=== PATIENT | female | born 1980 | race Caucasian/White ===

== ENCOUNTER → 2017-10-31 12:17 | Outpatient (CLI) | payer MEDICAID, SELFPAY ==
[2017-10-31 13:26] LABS: ALT 28 U/L (12-78); AST 18 U/L (15-37)
== END ==
PROVIDERS: PCP Nurse Practitioner Family; Visit Provider Dermatology
DX: B35.1 Tinea unguium (principal); Z79.899 Other long term (current) drug therapy
CPT/HCPCS: 36415; 84450; 84460

== ENCOUNTER 2018-04-25 06:27 | Emergency (ER) | payer MEDICAID, SELFPAY ==
[2018-04-25 06:31] VITALS: BP 112/64; PULSE 124; RESP 22; TEMP 36.9; O2SAT 96
--- NOTE | 2018-04-25 06:45 | DI.RAD_ITS ---
SYMPTOMS/DIAGNOSIS: COUGH PA AND LATERAL CHEST: No priors. The heart size and pulmonary vasculature are within normal limits. There is a question of a right basilar infiltrate laterally. The lungs are otherwise clear. No effusions or pneumothoraces are identified. The bones are intact. IMPRESSION: Right basilar infiltrate which may represent pneumonia or atelectasis.
--- NOTE | 2018-04-25 06:47 | W.ED.GENAD ---
Discharge Plan Disposition Patient Disposition: HOME Condition: Stable Discharge Details Chief Complaint: RespSymp Clinical Impression: CAP (community acquired pneumonia) Primary Care Provider: Ene Cuevas ED Provider: Raad Cuevas Home Meds and New Rx's Prescriptions: New levofloxacin 750 mg tablet 750 mg PO DAILY Qty: 5 RF: 0 ondansetron 4 mg tablet,disintegrating 4 mg PO TID PRN (Reason: nausea and vomiting) 5 Days Qty: 30 RF: 0 No Action metformin 850 MG tablet 850 mg PO BID Qty: 180 RF: 3 acyclovir 400 MG tablet 400 mg PO BID Qty: 60 RF: 11 sertraline 100 mg Tablet 200 mg PO DAILY RF: 0 Discharge Instructions Instructions: Community Acquired Pneumonia (ED) Additional Instructions: if not better next week see your primary care provider return to the emergency department if you have severe worsening symptoms Medical Decision Making 38 yo female with hx of pcos who comes in with cc of cough and general malaise for a few days. Denies recent travel, ivdu, rashes. Has has body aches, subjective fevers and nausea as well. She is in no acute distress on exam, has clear lung sounds, no adominal tenderness or distention. I suspect her symptoms are due to influenza, given she is outside the treatment window do not feel tamiflu indicated. Will obtain xray to eval for pna though unlikely given lack of fever and she appears well. pt remains stable, xray does show pna. She is hd stable and appropriate for outpatient management, will start abx and advised f/u with pcp and return precautions given Differential Diagnosis influenza, pna, uri Imaging Data Radiologic Study: Attestation: I personally reviewed and interpreted this imaging study as follows: Imaging: X-Ray Radiologist's impression: IMPRESSION: Right basilar pneumonia. HPI General Mode of arrival: ambulatory. Date/Time Provider Initiated Documentation: 04/25/18 06:40. Limitations to Documentation: no limitations. Information obtained by: patient. History of Present Illness 38 year old F presents to the emergency department with the chief complaint of cough, described as moderate, with intensity rated at 6. and is localized to the chest. Patient reports no radiation. Patient started experiencing this day(s) (2) and it has been constant. No relieving factors improve symptom(s), No exacerbating factors reported . Patient notes no other symptoms.. Patient did receive the following treatments prior to arrival, NSAID Related Data Home Medications Medication Instructions Recorded Confirmed metformin 850 mg PO BID #180 tab-cap 05/09/17 04/25/18 acyclovir 400 mg PO BID #60 tab-cap 07/08/17 04/25/18 levofloxacin 750 mg PO DAILY #5 tab 04/25/18 ondansetron 4 mg PO TID PRN 5 Days #30 tab 04/25/18 sertraline 200 mg PO DAILY 04/25/18 04/25/18 Previous Rx's Medication Instructions Recorded metformin 850 mg PO BID #180 tab-cap 05/09/17 acyclovir 400 mg PO BID #60 tab-cap 07/08/17 levofloxacin 750 mg PO DAILY #5 tab 04/25/18 ondansetron 4 mg PO TID PRN 5 Days #30 tab 04/25/18 Allergies Allergy/AdvReac Type Severity Reaction Status Date / Time No Known Allergies Allergy Unverified 04/25/18 06:34 General Stated Complaint: RespSymp FALGUNI: 3 Review of Systems Review of Systems All systems reviewed & are unremarkable except as noted in HPI and below Eyes Denies loss of vision ENT Denies change in voice Cardiovascular Denies chest pain and Denies dyspnea Respiratory Denies dyspnea Gastrointestinal Denies abdominal pain, Denies nausea and Denies vomiting Genitourinary Denies dysuria Musculoskeletal Denies joint swelling Integumentary/Breasts Denies rash Neurologic Denies loss of vision Psychiatric Denies depression [facility] Social History Smoking/Tobacco Use Status: Never Exam Const General: no acute distress Orientation: alert [facility] Head: normal to inspection Ears: external ears normal General nose exam: external nose normal Mouth: moist mucous membranes Eyes General: appearance normal, both eyes and all related structures Neck Neck: normal visual inspection Resp Effort & Inspection: normal respiratory effort and able to speak in complete sentences Cardio Rate: regular rate Skin General skin exam: no rashes or lesions noted Neuro General: alert and oriented x3 Extrem General: normal to inspection Psych Mental Status: mental status grossly normal Course Vital Signs Temperature 36.9 C 04/25/18 06:31 Pulse 124 H 04/25/18 06:31 Respiratory Rate 22 04/25/18 06:31 Blood Pressure 112/64 04/25/18 06:31 Pulse Oximetry 96 04/25/18 06:31 Temperature 36.9 C 04/25/18 06:31 Temperature Source Temporal Artery Scan 04/25/18 06:31 Pulse 124 H 04/25/18 06:31 Respiratory Rate 22 04/25/18 06:31 Respiratory Effort Non-Labored 04/25/18 06:37 Respiratory Depth Normal 04/25/18 06:37 Blood Pressure 112/64 04/25/18 06:31 Blood Pressure Position Sitting 04/25/18 06:31 Pulse Oximetry 96 04/25/18 06:31 Oxygen Delivery Method Room Air 04/25/18 06:31 Oxygen Flow Rate 0 04/25/18 06:31 Pain Level 4 04/25/18 06:31
[2018-04-25] MEDS: Ondansetron O.D.T. 4 MG TABEF PO (06:52)
[2018-04-25] MEDS: Acetaminophen 500 MG TAB 1000 MG PO (06:53)
--- NOTE | 2018-04-25 06:53 | ED.GENADUL_ITS ---
Discharge Plan Disposition Patient Disposition: HOME Condition: Stable Discharge Details Chief Complaint: RespSymp Clinical Impression: CAP (community acquired pneumonia) Primary Care Provider: Ene Cuevas ED Provider: Raad Cuevas Home Meds and New Rx's Prescriptions: New levofloxacin 750 mg tablet 750 mg PO DAILY Qty: 5 RF: 0 ondansetron 4 mg tablet,disintegrating 4 mg PO TID PRN (Reason: nausea and vomiting) 5 Days Qty: 30 RF: 0 No Action metformin 850 MG tablet 850 mg PO BID Qty: 180 RF: 3 acyclovir 400 MG tablet 400 mg PO BID Qty: 60 RF: 11 sertraline 100 mg Tablet 200 mg PO DAILY RF: 0 Discharge Instructions Instructions: Community Acquired Pneumonia (ED) Additional Instructions: if not better next week see your primary care provider return to the emergency department if you have severe worsening symptoms Medical Decision Making 38 yo female with hx of pcos who comes in with cc of cough and general malaise for a few days. Denies recent travel, ivdu, rashes. Has has body aches, subjective fevers and nausea as well. She is in no acute distress on exam, has clear lung sounds, no adominal tenderness or distention. I suspect her symptoms are due to influenza, given she is outside the treatment window do not feel tamiflu indicated. Will obtain xray to eval for pna though unlikely given lack of fever and she appears well. pt remains stable, xray does show pna. She is hd stable and appropriate for outpatient management, will start abx and advised f/u with pcp and return precautions given Differential Diagnosis influenza, pna, uri Imaging Data Radiologic Study: Attestation: I personally reviewed and interpreted this imaging study as follows: Imaging: X-Ray Radiologist's impression: IMPRESSION: Right basilar pneumonia. HPI General Mode of arrival: ambulatory . Date/Time Provider Initiated Documentation: 04/25/18 06:40 . Limitations to Documentation: no limitations . Information obtained by: patient . History of Present Illness 38 year old F presents to the emergency department with the chief complaint of cough, described as moderate, with intensity rated at 6. and is localized to the chest. Patient reports no radiation. Patient started experiencing this day(s) (2) and it has been constant. No relieving factors improve symptom(s), No exacerbating factors reported . Patient notes no other symptoms.. Patient did receive the following treatments prior to arrival, NSAID Related Data Home Medications Medication Instructions Recorded Confirmed metformin 850 mg PO BID #180 tab-cap 05/09/17 04/25/18 acyclovir 400 mg PO BID #60 tab-cap 07/08/17 04/25/18 levofloxacin 750 mg PO DAILY #5 tab 04/25/18 ondansetron 4 mg PO TID PRN 5 Days #30 tab 04/25/18 sertraline 200 mg PO DAILY 04/25/18 04/25/18 Previous Rx's Medication Instructions Recorded metformin 850 mg PO BID #180 tab-cap 05/09/17 acyclovir 400 mg PO BID #60 tab-cap 07/08/17 levofloxacin 750 mg PO DAILY #5 tab 04/25/18 ondansetron 4 mg PO TID PRN 5 Days #30 tab 04/25/18 Allergies Allergy/AdvReac Type Severity Reaction Status Date / Time No Known Allergies Allergy Unverified 04/25/18 06:34 General Stated Complaint: RespSymp FALGUNI: 3 Review of Systems Review of Systems All systems reviewed & are unremarkable except as noted in HPI and below Eyes Denies loss of vision ENT Denies change in voice Cardiovascular Denies chest pain and Denies dyspnea Respiratory Denies dyspnea Gastrointestinal Denies abdominal pain, Denies nausea and Denies vomiting Genitourinary Denies dysuria Musculoskeletal Denies joint swelling Integumentary/Breasts Denies rash Neurologic Denies loss of vision Psychiatric Denies depression [facility] Social History Smoking/Tobacco Use Status: Never Exam Const General: no acute distress Orientation: alert [facility] Head: normal to inspection Ears: external ears normal General nose exam: external nose normal Mouth: moist mucous membranes Eyes General: appearance normal, both eyes and all related structures Neck Neck: normal visual inspection Resp Effort & Inspection: normal respiratory effort and able to speak in complete sentences Cardio Rate: regular rate Skin General skin exam: no rashes or lesions noted Neuro General: alert and oriented x3 Extrem General: normal to inspection Psych Mental Status: mental status grossly normal Course Vital Signs Temperature 36.9 C 04/25/18 06:31 Pulse 124 H 04/25/18 06:31 Respiratory Rate 22 04/25/18 06:31 Blood Pressure 112/64 04/25/18 06:31 Pulse Oximetry 96 04/25/18 06:31 Temperature 36.9 C 04/25/18 06:31 Temperature Source Temporal Artery Scan 04/25/18 06:31 Pulse 124 H 04/25/18 06:31 Respiratory Rate 22 04/25/18 06:31 Respiratory Effort Non-Labored 04/25/18 06:37 Respiratory Depth Normal 04/25/18 06:37 Blood Pressure 112/64 04/25/18 06:31 Blood Pressure Position Sitting 04/25/18 06:31 Pulse Oximetry 96 04/25/18 06:31 Oxygen Delivery Method Room Air 04/25/18 06:31 Oxygen Flow Rate 0 04/25/18 06:31 Pain Level 4 04/25/18 06:31
--- NOTE | 2018-04-25 07:34 | DI.VRAD_ITS ---
EXAM: XR Chest, 2 Views EXAM DATE/TIME: 04/25/2018 7:07 AM CLINICAL HISTORY: 38 years old, female; Cough TECHNIQUE: XR of the chest, 2 views. COMPARISON: No relevant prior studies available. FINDINGS: Lungs: There is faint right basilar airspace disease which can be due to a pneumonia given the history. Pleural space: No pleural effusion or pneumothorax. Heart/Mediastinum: The heart is not enlarged. The mediastinal contours are normal. Bones/joints: No acute osseous abnormality. IMPRESSION: Right basilar pneumonia. Dictated and Authenticated by: Vipul Boyd MD. Ordering:KAYCE Shankar MD
[2018-04-25 07:38] VITALS: BP 97/57; PULSE 121; RESP 20; TEMP 38.8; O2SAT 93
[2018-04-25] MEDS: LEVOFLOXACIN 500 MG, LEVOFLOXACIN 250 MG 750 MG PO (07:41)
== END 2018-04-25 07:45 | disposition home or self-care (01) ==
PROVIDERS: Emergency Provider Emergency Medicine; PCP Nurse Practitioner Family
DX: J18.9 Pneumonia, unspecified organism (principal)
CPT/HCPCS: 99283; 71046

== ENCOUNTER 2018-04-26 14:39 | Emergency (ER) | payer MEDICAID, SELFPAY ==
[2018-04-26] VITALS (40 sets, daily range): BP systolic 101–133; BP diastolic 63–96; PULSE 86–115; RESP 13–39; TEMP 36.3–36.7; O2SAT 90–98
--- NOTE | 2018-04-26 15:12 | W.ED.GENAD ---
Discharge Plan Disposition Patient Disposition: HOME Discharge Details Chief Complaint: Allergic Clinical Impression: Anaphylactic reaction, Pneumonia Primary Care Provider: Ene Cuevas ED Provider: Paco Carlisle Home Meds and New Rx's Prescriptions: New doxycycline hyclate 100 mg tablet 100 mg PO BID Qty: 13 RF: 0 prednisone 20 mg tablet 40 mg PO DAILY Qty: 8 RF: 0 diphenhydramine HCl [Benadryl] 25 mg capsule 25 mg PO Q8H Qty: 14 RF: 0 Continued metformin 850 MG tablet 850 mg PO BID Qty: 180 RF: 3 acyclovir 400 MG tablet 400 mg PO BID Qty: 60 RF: 11 sertraline 100 mg Tablet 200 mg PO DAILY RF: 0 Discontinued levofloxacin 750 mg tablet 750 mg PO DAILY Qty: 5 RF: 0 Discharge Instructions Instructions: Antibiotic Medication Allergy (ED), Pneumonia (ED) Additional Instructions: Please take medication as prescribed. Be sure to take Benadryl 25mg every 6-8 hours for the next 3 days. Stop taking Levaquin. Start taking doxycycline. Please contact your primary care physician to arrange follow-up. Return to the ER for any worsening or new concerning symptoms. Referrals: Ene uCevas [Primary Care Provider] - Discharge Data Discharge Date/Time-TO BE ENTERED AT DEPARTURE: 04/26/18 19:19 Medical Decision Making 15:19 --38-year-old female here with rash and throat swelling after taking second dose of Levaquin today for pneumonia. Patient is saturating well. She does have a hoarse voice. No indication for emergent airway intervention at this time. Plan to treat for anaphylaxis with epinephrine, Solu-Medrol, Benadryl, Pepcid. 17:00 --patient reassessed and significantly improved. 18:45 --patient reassessed and much improved. Plan to switch levaquin to doxycline. Continue prednisone and benadryl. Follow-up patient will require close follow-up with the next couple days with her primary care physician to reassess. Usual and customary discharge instructions were provided. HPI General Mode of arrival: ambulatory. Date/Time Provider Initiated Documentation: 04/26/18 14:54. Limitations to Documentation: no limitations. Information obtained by: patient. HPI Narrative: 38-year-old female who was seen here in the emergency department yesterday for cough and diagnosed with pneumonia. She was started on Levaquin. She received a dose yesterday morning prior to discharge in the emergency department. A few hours later when she got home she noted that she had a rash on her upper extremities as well as torso. Rash was itchy. She also noted some difficulty swallowing and swelling in her throat. Symptoms seem to improve over the course of the day yesterday. She took another dose of her Levaquin this morning around 9 AM and subsequently developed recurrent itchy rash on her arms, torso and groin and also has some difficulty with swallowing. No shortness of breath. Voice seems hoarse. No vomiting. Related Data Home Medications Medication Instructions Recorded Confirmed metformin 850 mg PO BID #180 tab-cap 05/09/17 04/26/18 acyclovir 400 mg PO BID #60 tab-cap 07/08/17 04/26/18 sertraline 200 mg PO DAILY 04/25/18 04/26/18 diphenhydramine HCl [Benadryl] 25 mg PO Q8H #14 cap 04/26/18 doxycycline hyclate 100 mg PO BID #13 tab 04/26/18 prednisone 40 mg PO DAILY #8 tab 04/26/18 Previous Rx's Medication Instructions Recorded metformin 850 mg PO BID #180 tab-cap 05/09/17 acyclovir 400 mg PO BID #60 tab-cap 07/08/17 diphenhydramine HCl [Benadryl] 25 mg PO Q8H #14 cap 04/26/18 doxycycline hyclate 100 mg PO BID #13 tab 04/26/18 prednisone 40 mg PO DAILY #8 tab 04/26/18 Allergies Allergy/AdvReac Type Severity Reaction Status Date / Time levofloxacin [From Levaquin] Allergy Intermediate Hives Unverified 04/26/18 14:53 General Stated Complaint: Allergic FALGUNI: 3 Review of Systems Review of Systems All systems reviewed & are unremarkable except as noted in HPI and below Respiratory Reports cough PFSH Social History Smoking and Tabacco status: Never Exam Const General: cooperative and not lethargic Orientation: alert and awake Limitations: mental status not altered HENAZ Head: normocephalic and atraumatic Mouth: moist mucous membranes Throat: posterior oropharynx normal and uvula midline Other: hoarse voice Eyes Conjunctivae: normal conjunctivae Sclera: normal sclerae Neck Neck: trachea midline and supple Resp Auscultation: clear to auscultation bilaterally, no rales, no rhonchi and no wheezes Cardio Jugular venous pressure: no JVD Rate: tachycardic Rhythm: regular rhythm GI Palpation: soft, not firm, no guarding, no masses, not rigid and nontender Skin Rashes: rashes noted (hives chest and arms) Neuro General: alert, awake, oriented x3 and tone normal Extrem General: no edema Psych Appearance: grossly normal Mental Status: mental status grossly normal Speech and Movement: speech and movement normal Course Vital Signs Temperature 36.3 C L 04/26/18 14:47 Pulse 112 H 04/26/18 14:47 Respiratory Rate 16 04/26/18 14:47 Blood Pressure 133/86 04/26/18 14:47 Pulse Oximetry 95 04/26/18 14:47 Temperature 36.3 C L 04/26/18 14:47 Temperature Source Skin 04/26/18 14:47 Pulse 112 H 04/26/18 14:47 Respiratory Rate 16 04/26/18 14:47 Respiratory Effort Non-Labored 04/26/18 14:54 Respiratory Pattern Normal 04/26/18 14:54 Blood Pressure 133/86 04/26/18 14:47 Blood Pressure Position Sitting 04/26/18 14:47 Pulse Oximetry 95 04/26/18 14:47 Oxygen Delivery Method Room Air 04/26/18 14:47 Oxygen Flow Rate 0 04/26/18 14:47 Pain Level 3 04/26/18 14:47
[2018-04-26] MEDS: EPINEPHrine 0.3 MG KIT IM (15:19)
--- NOTE | 2018-04-26 15:20 | ED.GENADUL_ITS ---
Discharge Plan Disposition Patient Disposition: HOME Discharge Details Chief Complaint: Allergic Clinical Impression: Anaphylactic reaction, Pneumonia Primary Care Provider: Ene Cuevas ED Provider: Paco Carlisle Home Meds and New Rx's Prescriptions: New doxycycline hyclate 100 mg tablet 100 mg PO BID Qty: 13 RF: 0 prednisone 20 mg tablet 40 mg PO DAILY Qty: 8 RF: 0 diphenhydramine HCl [Benadryl] 25 mg capsule 25 mg PO Q8H Qty: 14 RF: 0 Continued metformin 850 MG tablet 850 mg PO BID Qty: 180 RF: 3 acyclovir 400 MG tablet 400 mg PO BID Qty: 60 RF: 11 sertraline 100 mg Tablet 200 mg PO DAILY RF: 0 Discontinued levofloxacin 750 mg tablet 750 mg PO DAILY Qty: 5 RF: 0 Discharge Instructions Instructions: Antibiotic Medication Allergy (ED), Pneumonia (ED) Additional Instructions: Please take medication as prescribed. Be sure to take Benadryl 25mg every 6-8 hours for the next 3 days. Stop taking Levaquin. Start taking doxycycline. Please contact your primary care physician to arrange follow-up. Return to the ER for any worsening or new concerning symptoms. Referrals: Ene Cuevas [Primary Care Provider] - Discharge Data Discharge Date/Time-TO BE ENTERED AT DEPARTURE: 04/26/18 19:19 Medical Decision Making 15:19 --38-year-old female here with rash and throat swelling after taking second dose of Levaquin today for pneumonia. Patient is saturating well. She does have a hoarse voice. No indication for emergent airway intervention at this time. Plan to treat for anaphylaxis with epinephrine, Solu-Medrol, Benadryl, Pepcid. 17:00 --patient reassessed and significantly improved. 18:45 --patient reassessed and much improved. Plan to switch levaquin to doxycline. Continue prednisone and benadryl. Follow-up patient will require close follow-up with the next couple days with her primary care physician to reassess. Usual and customary discharge instructions were provided. HPI General Mode of arrival: ambulatory . Date/Time Provider Initiated Documentation: 04/26/18 14:54 . Limitations to Documentation: no limitations . Information obtained by: patient . HPI Narrative: 38-year-old female who was seen here in the emergency department yesterday for cough and diagnosed with pneumonia. She was started on Levaquin. She received a dose yesterday morning prior to discharge in the emergency department. A few hours later when she got home she noted that she had a rash on her upper extremities as well as torso. Rash was itchy. She also noted some difficulty swallowing and swelling in her throat. Symptoms seem to improve over the course of the day yesterday. She took another dose of her Levaquin this morning around 9 AM and subsequently developed recurrent itchy rash on her arms, torso and groin and also has some difficulty with swallowing. No shortness of breath. Voice seems hoarse. No vomiting. Related Data Home Medications Medication Instructions Recorded Confirmed metformin 850 mg PO BID #180 tab-cap 05/09/17 04/26/18 acyclovir 400 mg PO BID #60 tab-cap 07/08/17 04/26/18 sertraline 200 mg PO DAILY 04/25/18 04/26/18 diphenhydramine HCl [Benadryl] 25 mg PO Q8H #14 cap 04/26/18 doxycycline hyclate 100 mg PO BID #13 tab 04/26/18 prednisone 40 mg PO DAILY #8 tab 04/26/18 Previous Rx's Medication Instructions Recorded metformin 850 mg PO BID #180 tab-cap 05/09/17 acyclovir 400 mg PO BID #60 tab-cap 07/08/17 diphenhydramine HCl [Benadryl] 25 mg PO Q8H #14 cap 04/26/18 doxycycline hyclate 100 mg PO BID #13 tab 04/26/18 prednisone 40 mg PO DAILY #8 tab 04/26/18 Allergies Allergy/AdvReac Type Severity Reaction Status Date / Time levofloxacin [From Levaquin] Allergy Intermediate Hives Unverified 04/26/18 14:53 General Stated Complaint: Allergic FALGUNI: 3 Review of Systems Review of Systems All systems reviewed & are unremarkable except as noted in HPI and below Respiratory Reports cough PFSH Social History Smoking and Tabacco status: Never Exam Const General: cooperative and not lethargic Orientation: alert and awake Limitations: mental status not altered HENWV Head: normocephalic and atraumatic Mouth: moist mucous membranes Throat: posterior oropharynx normal and uvula midline Other: hoarse voice Eyes Conjunctivae: normal conjunctivae Sclera: normal sclerae Neck Neck: trachea midline and supple Resp Auscultation: clear to auscultation bilaterally, no rales, no rhonchi and no wheezes Cardio Jugular venous pressure: no JVD Rate: tachycardic Rhythm: regular rhythm GI Palpation: soft, not firm, no guarding, no masses, not rigid and nontender Skin Rashes: rashes noted (hives chest and arms) Neuro General: alert, awake, oriented x3 and tone normal Extrem General: no edema Psych Appearance: grossly normal Mental Status: mental status grossly normal Speech and Movement: speech and movement normal Course Vital Signs Temperature 36.3 C L 04/26/18 14:47 Pulse 112 H 04/26/18 14:47 Respiratory Rate 16 04/26/18 14:47 Blood Pressure 133/86 04/26/18 14:47 Pulse Oximetry 95 04/26/18 14:47 Temperature 36.3 C L 04/26/18 14:47 Temperature Source Skin 04/26/18 14:47 Pulse 112 H 04/26/18 14:47 Respiratory Rate 16 04/26/18 14:47 Respiratory Effort Non-Labored 04/26/18 14:54 Respiratory Pattern Normal 04/26/18 14:54 Blood Pressure 133/86 04/26/18 14:47 Blood Pressure Position Sitting 04/26/18 14:47 Pulse Oximetry 95 04/26/18 14:47 Oxygen Delivery Method Room Air 04/26/18 14:47 Oxygen Flow Rate 0 04/26/18 14:47 Pain Level 3 04/26/18 14:47
[2018-04-26] MEDS: Lactated Ringers 1,000 ML 1000 ML IV (15:25)
[2018-04-26] MEDS: diphenhydrAMINE 50 MG/ML VIAL IVP (15:27)
[2018-04-26] MEDS: methylPREDNISolone SUCC 125 MG VIAL 60 MG IVP (15:29)
[2018-04-26] MEDS: FAMOTIDINE 20 MG/50 ML BAG 200 MG IVPB (15:31)
[2018-04-26] MEDS: Doxycycline Hyclate 100 MG CAP PO (18:24)
[2018-04-26] MEDS: Doxycycline Hyclate 100 MG CAP (19:01)
--- NOTE | 2018-04-28 12:06 | PDOC.ERCMPRO ---
Care Management Progress Note 04/28-Dr. Jamel Carlisle requested assistance with a PCP ([facility]) f/u in two days for anaphylaxis/pneumonia. Referral faxed to [facility] this am.
--- NOTE | 2018-04-28 12:10 | CMPROGNOTE_ITS ---
Care Management Progress Note 04/28-Dr. Jamel Carlisle requested assistance with a PCP ([facility]) f/u in two days for anaphylaxis/pneumonia. Referral faxed to [facility] this am.
== END 2018-04-26 19:19 | disposition home or self-care (01) ==
PROVIDERS: Emergency Provider Student in an Organized Health Care Education/Training Program; PCP Nurse Practitioner Family
DX: T36.95XA Adverse effect of unspecified systemic antibiotic, initial encounter (principal); R21 Rash and other nonspecific skin eruption; R13.10 Dysphagia, unspecified; J18.9 Pneumonia, unspecified organism
CPT/HCPCS: 96361; 96374; 96375; 99284; J0171; J1200; J2930

== ENCOUNTER 2018-05-26 00:38 | Outpatient (CLI) | payer MEDICAID, SELFPAY ==
--- NOTE | 2018-05-26 10:25 | DI.RAD_ITS ---
SYMPTOM/DIAGNOSIS: PNEUMONIA PA AND LATERAL CHEST: Comparison is made with 04/25/18. The lungs are suboptimally inflated on both views. The heart size is within normal limits. The lungs appear clear. No infiltrate or effusion is seen. IMPRESSION: Negative chest xray.
== END 2018-05-26 00:58 ==
PROVIDERS: PCP Nurse Practitioner Family; Visit Provider Nurse Practitioner Family
DX: J18.9 Pneumonia, unspecified organism (principal)
CPT/HCPCS: 71046

== ENCOUNTER 2018-09-23 10:26 | Outpatient (REF) | payer MEDICAID, SELFPAY ==
[2018-09-23 12:33] LABS: CREATININE 0.54 mg/dL (0.55-1.02)
== END 2018-09-23 10:46 ==
LOC: NCHCN 10:26
PROVIDERS: PCP Nurse Practitioner Family; Visit Provider Nurse Practitioner Family
DX: R51 Headache (principal); E28.2 Polycystic ovarian syndrome; I83.91 Asymptomatic varicose veins of right lower extremity; F43.10 Post-traumatic stress disorder, unspecified; F41.9 Anxiety disorder, unspecified; A60.00 Herpesviral infection of urogenital system, unspecified; E66.9 Obesity, unspecified
CPT/HCPCS: 82565

== ENCOUNTER 2019-05-09 21:04 | Emergency (ER) | payer MEDICAID, SELFPAY ==
[2019-05-09 21:07] VITALS: BP 151/86; PULSE 100; RESP 16; TEMP 36.7; O2SAT 100
--- NOTE | 2019-05-09 21:22 | W.ED.GENAD ---
Discharge Plan Disposition Patient Disposition: HOME Condition: Stable Discharge Details Chief Complaint: [employer] Clinical Impression: Threatened miscarriage in early Primary Care Provider: Ene Cuevas ED Provider: Evelyn Santiago Home Meds and New Rx's Prescriptions: Continued acyclovir 400 MG tablet 400 mg PO BID Qty: 60 RF: 11 metformin 850 MG tablet 1,000 mg PO BID RF: 0 sertraline 100 mg Tablet 100 mg PO DAILY RF: 0 Discharge Instructions Instructions: Threatened Miscarriage (ED) Additional Instructions: Have your blood drawn in 48 hours. Please follow-up and make an appointment with [employer] on Saturday. I spoke with Dr. Larry Wharton who is [employer] on-call please call the clinic on Saturday to have an appointment on Saturday tell them that you were seen in the ER and that I spoke with Dr. Wharton and he agrees to see you in the office. If you have any severe worsening in vaginal bleeding, dizziness or lightheadedness, or severe abdominal pain please return to the ER immediately. Increase oral fluids, eat well, take care of yourself and stay hydrated. Take Tylenol as needed for abdominal cramping. [facility] phone number Stand Alone Forms: Work Release Referrals: Ene Cuevas [Primary Care Provider] - Medical Decision Making 39-year-old female with history of PCOS presents to the ER with vaginal bleeding and abdominal cramping. She reports mild spotting starting 5 days ago and approximately 1 hour prior to arrival she had a huge gush of vaginal bleeding. She said abdominal cramping significantly increased at that time and has since subsided somewhat. She is on metformin for the PCOS. She does have 1 daughter who is 10 years old. 1943: Discussed urine test with patient and patient verbalized understanding and is visibly upset of results. 2214: Pelvic exam performed with RN witness, patient tolerated well. She does have some mild blood in the vaginal canal and cervical os is open and she is actively bleeding. No tissue visualized within the cervical os. We do not have ultrasound capabilities on at the moment. hCG quant is still pending. I will have patient follow-up with women's wellness as long as she stays stable and have her hCG quant levels redrawn in 48 hours. 2301: hCG quant came back at 17,168, I will give patient lab requisition to have hCG quant drawn in 48 hours I will refer her to women's wellness to see [employer] or PCP within 2 to 3 days. At this time my presumed impression without ultrasound due to the vaginal bleeding open cervical loss and hCG level of 17, 168 is threatened miscarriage. She has mild to moderate bleeding at this time, her labs are stable and her vital signs are stable I do feel it is safe for her to be discharged home with outpatient follow-up strict return instructions discussed with patient and , verbalized understanding. Instructed to return for any severe worsening vaginal bleeding worsening severe abdominal pain dizziness or lightheadedness verbalized understanding. Will call and consult [employer] regarding patient. 2315: Spoke with Dr. Wharton regarding patient who is [employer] on-call he agrees to see patient on Saturday morning in the office. We will draw a Rh type at this time and discharge patient home with strict return instructions. HPI General Mode of arrival: ambulatory. Date/Time Provider Initiated Documentation: 05/09/19 21:04. Limitations to Documentation: no limitations. Information obtained by: patient. HPI Narrative: 39-year-old female with a history of PCOS presents with vaginal bleeding. Patient states she has had bleeding for the last 5 days and abdominal cramping she thought this was just her normal menstrual period. Patient states approximately 1 hour ago she had a huge gush of blood and has soaked through 3 pads an hour. She denies feeling any dizziness. Mild right lower quadrant abdominal cramping at this time and she is still currently vaginal bleeding. She is G1 was a 10-year-old daughter. She does take metformin for her PCO S. Related Data Home Medications Medication Instructions Recorded Confirmed acyclovir 400 mg PO BID #60 tab-cap 07/08/17 04/26/18 sertraline 100 mg PO DAILY 04/25/18 04/26/18 metformin 1,000 mg PO BID 05/09/19 Previous Rx's Medication Instructions Recorded acyclovir 400 mg PO BID #60 tab-cap 07/08/17 Allergies Allergy/AdvReac Type Severity Reaction Status Date / Time levofloxacin [From Levaquin] Allergy Intermediate Hives Unverified 04/26/18 14:53 General Stated Complaint: [employer] FALGUNI: 3 Review of Systems Narrative: Constitutional: Negative for weight loss, alert and oriented, well groomed, normal body habitus, appears comfortable. HEENT: Denies trauma, headaches, blurry vision, nasal discharge, sore throat, trouble swallowing. Chest: Denies chest pain, palpitations, irregular rhythm, hypertension. Respiratory: Denies Shortness of breath, cough, hemoptysis. GI: Positive abdominal pain, negative nausea, vomiting, diarrhea, constipation. : Denies dysuria, hematuria, flank pain, rectal bleeding. Positive vaginal bleeding Neuro: Denies dizziness, blurry vision, weakness, syncope, headache or facial numbness. Hematologic: Denies easy bruising, intolerance to heat or cold, hair loss. [facility] Social History Smoking/Tobacco Use Status: Never Alcohol Intake: never Drug use: Never Substance use type: does not use Do you feel safe at home: Yes Do you feel safe in your relationship?: Yes Exam Narrative Exam Narrative: Constitutional: Allert and oriented x3. Appears stated age. Normal body habitus. Head: Normocephalic, no trauma. Eyes: Pupils PERRLA, Red reflex noted, EOM's intact. Eyelids symmetrical withour lesions, discharge, or swelling. ENT: Bilateral TM's WNL, External ear normal to inspection, no mastoid TTP, swelling, or erythema, Nasal turbinates WNL, no nasal discharge. Normal dentition, Posterior pharynx WNL, no exudate. Chest: RRR, Normal S1, S2, distal pulses intact. Resp: Lungs clear to auscultation bilaterally, no wheezes, rales, or rhonchi. Musculoskeletal: Normal gait, 5/5 strength to all four extremities. Skin: No suspicious rashes or lesions. Capillary refill ?2 sec. Neurologic: Cranial nerves II-XII intact. Alert and oriented x 3. DTR's intact. Hematologic/Lymphatic: No ecchymosis, no lymphadenopathy. External Female Exam: external appearance normal Speculum Exam - Vagina: vaginal bleeding and No tissue present in vagina Speculum Exam - Cervix: cervical os open Bimanual Exam- Vagina & Uterus: normal bimanual exam OB/External & Speculum: no tissue noted in vagina, cervical os open and vaginal bleeding Course Vital Signs Vital signs: Vital Signs Temperature 36.7 C 05/09/19 21:07 Pulse 100 H 05/09/19 21:07 Respiratory Rate 16 05/09/19 21:07 Blood Pressure 151/86 H 05/09/19 21:07 Pulse Oximetry 100 05/09/19 21:07 Temperature 36.7 C 05/09/19 21:07 Temperature Source Skin 05/09/19 21:07 Pulse 100 H 05/09/19 21:07 Respiratory Rate 16 05/09/19 21:07 Blood Pressure 151/86 H 05/09/19 21:07 Pulse Oximetry 100 05/09/19 21:07 Oxygen Delivery Method Room Air 05/09/19 21:07 Oxygen Flow Rate 0 05/09/19 21:07
[2019-05-09] MEDS: Normal Saline 1,000 ML 1000 ML IV (21:47)
[2019-05-09 22:04] LABS: Abs Immature Grans 0.04 k/cumm (0.0-0.09); Absolute Basophil Count 0.05 k/cumm (0.0-0.2); Absolute Eosinophil Count 0.37 k/cumm (0.0-0.7); Basophils % 0.4; Eosinophils % 2.8; HCT 41.5 % (36.0-46.0); HGB 13.7 g/dL (12.0-15.5); Immature Grans % 0.3 %; Lymphocytes % 27.9; Mean Corpuscular Hemoglobin 30.2 pg (27.0-33.0); Mean Corpuscular Volume 91.6 fL (80-95); Mean Platelet Volume 8.8 fL (8.0-11.0); Neutrophils % 62.6; Platelet Count 393 x1000/uL (130-400); RBC 4.53 m/cumm (4.00-5.20); RBC Distribution Width 13.1 % (11.7-14.6); White Blood Cell Count 13.27 k/cumm (4.4-10.8)
[2019-05-09 22:06] LABS: Absolute Neutrophil Count 8.31 k/cumm (1.2-6.7)
[2019-05-09 22:48] LABS: Anion Gap 11.3 mmol/L (3-11); BUN 11 mg/dL (7-18); CO2 26.7 mmol/L (21.0-32.0); CREATININE 0.65 mg/dL (0.55-1.02); Calcium 8.9 mg/dL (8.5-10.1); Chloride 101 mmol/L (98-107); Glucose 126 mg/dL (74-106); Potassium 3.3 mmol/L (3.5-5.1); Sodium 139 mmol/L (136-145)
[2019-05-09 22:49] LABS: HCG Quant, Pregnancy 17168 mIU/mL (1-3)
[2019-05-09 23:33] VITALS: BP 112/65; PULSE 85; RESP 16; TEMP 37.2; O2SAT 99
== END 2019-05-09 23:30 | disposition home or self-care (01) ==
PROVIDERS: Emergency Provider Registered Nurse Emergency; PCP Nurse Practitioner Family
DX: O20.0 Threatened abortion (principal); Z33.1 Pregnant state, incidental; E28.2 Polycystic ovarian syndrome
CPT/HCPCS: 36415; 80048; 81025; 86900; 86901; 96360; 96361; 99284; 84702; 85025

== ENCOUNTER 2019-05-11 10:57 | Outpatient (CLI) | payer MEDICAID, SELFPAY ==
[2019-05-11 15:00] LABS: TSH 1.42 uIU/mL (0.36-3.74)
[2019-05-11 15:22] LABS: Hemoglobin A1C 5.5 % (3.8-5.6)
[2019-05-11 15:37] LABS: HCG Quant, Pregnancy 4165 mIU/mL (1-3)
[2019-05-12 12:04] LABS: Prolactin 9.8 ng/mL (See Table)
== END 2019-05-11 11:17 ==
PROVIDERS: PCP Nurse Practitioner Family; Visit Provider Obstetrics & Gynecology
DX: N91.5 Oligomenorrhea, unspecified (principal); O20.0 Threatened abortion; E66.9 Obesity, unspecified
CPT/HCPCS: 36415; 83036; 84146; 84443; 84702

== ENCOUNTER 2019-05-18 11:59 | Outpatient (CLI) | payer MEDICAID, SELFPAY ==
[2019-05-18 13:16] LABS: HCG Quant, Pregnancy 147 mIU/mL (1-3)
== END 2019-05-18 12:19 ==
PROVIDERS: PCP Nurse Practitioner Family; Visit Provider Obstetrics & Gynecology Gynecology
DX: O03.9 Complete or unspecified spontaneous abortion without complication (principal)
CPT/HCPCS: 36415; 84702

== ENCOUNTER 2019-09-11 13:25 | Outpatient (REF) | payer MEDICAID, SELFPAY ==
[2019-09-11 22:30] LABS: Magnesium 1.7 mg/dL (1.8-2.4); Vitamin B12 201 pg/mL (193-986)
[2019-09-14 11:32] LABS: HIV-1/2 Ag & Ab Screen Negative (Negative)
[2019-09-14 11:36] LABS: Hepatitis C Ab w Rflx HCV PCR Negative (Negative)
== END 2019-09-11 13:45 ==
LOC: NCHCN 13:25
PROVIDERS: PCP Nurse Practitioner Family; Visit Provider Nurse Practitioner Family
DX: I10 Essential (primary) hypertension (principal); R11.0 Nausea; R42 Dizziness and giddiness; K30 Functional dyspepsia; F43.10 Post-traumatic stress disorder, unspecified; E83.42 Hypomagnesemia; R51 Headache; J45.20 Mild intermittent asthma, uncomplicated; Z11.4 Encounter for screening for human immunodeficiency virus [HIV]; Z11.59 Encounter for screening for other viral diseases
CPT/HCPCS: 86803; 87389; 82565; 82607; 83735

== ENCOUNTER 2020-04-21 15:03 | Emergency (ER) | payer MEDICAID, SELFPAY ==
[2020-04-21 15:09] VITALS: BP 135/93; PULSE 83; RESP 22; TEMP 36.4; O2SAT 97
--- NOTE | 2020-04-21 15:15 | DI.RAD_ITS ---
EXAM: XR HUMERUS LT CLINICAL HISTORY: fall onto L arm, r/o humerus fracture. TECHNIQUE: 2D digital imaging was performed. COMPARISON: No exams were available for comparison FINDINGS: BONES: There is a nondisplaced longitudinally oriented fracture through the greater tuberosity. No b heriberto destructive lesion is seen. Visualized portion of elbow and shoulder joints are unremarkable. SOFT TISSUE: Normal. IMPRESSION: Nondisplaced fracture of the proximal humerus through the greater tuberosity. DATA REPOSITORY: RADIATION DOSE DELIVERED:
--- NOTE | 2020-04-21 15:19 | W.ED.GENAD ---
Discharge Plan Disposition Patient Disposition: HOME Condition: Stable Discharge Details Clinical Impression: Fracture of proximal end of humerus Primary Care Provider: Ene Cuevas ED Provider: Margarita Cornelius Home Meds and New Rx's Prescriptions: New oxycodone 5 mg tablet 5 mg PO Q6H PRN (Reason: pain) Qty: 10 RF: 0 Continued propranolol 10 mg tablet 10 mg PO BID RF: 0 ibuprofen 400 mg tablet 400 mg PO Q8H PRN (Reason: pain) RF: 0 acyclovir 400 MG tablet 400 mg PO BID Qty: 60 RF: 11 sertraline 100 mg Tablet 100 mg PO DAILY RF: 0 buspirone 10 mg tablet 10 mg PO BID RF: 0 omeprazole 20 mg capsule,delayed release(DR/EC) 20 mg PO DAILY RF: 0 Discharge Instructions Instructions: Proximal Humerus Fracture (ED) Additional Instructions: Rest, ice, and elevate the affected area as much as possible. Alternate tylenol and motrin as needed and directed for pain. Take the oxycodone for pain not relieved with Tylenol or Motrin. Call the orthopedist office tomorrow to schedule a follow-up appointment for reevaluation. Return immediately to the emergency department if you develop any worsening or new concerning symptoms. Referrals: Ye Mitchell MD [ [facility] STAFF PHYSICIAN] - Discharge Data Discharge Date/Time-TO BE ENTERED AT DEPARTURE: 04/21/20 17:45 Discharge Physician: Margarita Cornelius Medical Decision Making 40-year-old female with a history of PCOS presents for left upper arm pain after fall on ice prior to arrival. Patient denied chance of and declined test here. Patient holding her left arm close to her body. She has tenderness to palpation to her left mid to lower upper arm. No open wounds. Neurovascularly intact. No deformities noted. Patient denies chance of . Will give a dose of oxycodone and refer for left humerus x-ray. Patient placed in sling for comfort. Left humerus x-ray notes a nondisplaced fracture proximal humerus throughout the greater tuberosity but recommended dedicated shoulder x-rays to confirm. Shoulder x-rays significantly delayed due to not receiving all images. Shoulder x-ray confirmed nondisplaced fracture greater tuberosity left humerus. Patient placed on orthopedic follow-up list. She was given oxycodone for pain. Instructed on the importance of RICE. Usual and customary return precautions given prior to discharge. Medical Records Medical records reviewed: Yes I reviewed the patient's medical records. Imaging Data Radiologic Study: Radiologist's impression: XR HUMERUS LT CLINICAL HISTORY: fall onto L arm, r/o humerus fracture. TECHNIQUE: 2D digital imaging was performed. COMPARISON: No exams were available for comparison FINDINGS: BONES: There is a nondisplaced longitudinally oriented fracture through the greater tuberosity. No bony destructive lesion is seen. Visualized portion of elbow and shoulder joints are unremarkable. SOFT TISSUE: Normal. IMPRESSION: Nondisplaced fracture of the proximal humerus through the greater tuberosity. XR SHOULDER LT COMPLETE 2+V CLINICAL HISTORY: s/p fall, r/o acute fx greater tuberosity. TECHNIQUE: 2D digital imaging was performed. COMPARISON: No exams were available for comparison FINDINGS: BONES: There is an acute nondisplaced fracture of the greater tuberosity of the left humerus. No bony destructive lesion is seen. JOINTS: No dislocation present. SOFT TISSUE: Normal. IMPRESSION: Nondisplaced fracture of the greater tuberosity of the left humerus. HPI General Mode of arrival: ambulatory. Date/Time Provider Initiated Documentation: 04/21/20 15:03. Limitations to Documentation: no limitations. Information obtained by: patient. HPI Narrative: Patient is a 40-year-old female who presents with left arm pain after slip and fall onto her left arm on ice just prior to arrival. Patient states she was holding her 2-year-old niece when she slipped on ice and was trying to protect her and fell onto her outstretched left arm. She is complaining of pain in her distal L upper arm but denies any shoulder, elbow or wrist pain. She states she also hit her left knee but is 19 hours area. She denies head injury, chest pain, abdominal pain, neck or back pain. She denies any right arm or leg pain. She does not take any medication for pain. Related Data Home Medications Medication Instructions Recorded Confirmed acyclovir 400 mg PO BID #60 tab-cap 07/08/17 04/21/20 sertraline 100 mg PO DAILY 04/25/18 04/21/20 ibuprofen 400 mg tablet 400 mg PO Q8H PRN 05/11/19 04/21/20 propranolol 10 mg tablet 10 mg PO BID 05/11/19 04/21/20 buspirone 10 mg PO BID 04/21/20 04/21/20 omeprazole 20 mg PO DAILY 04/21/20 04/21/20 oxycodone 5 mg PO Q6H PRN #10 tab 04/21/20 Previous Rx's Medication Instructions Recorded acyclovir 400 mg PO BID #60 tab-cap 07/08/17 oxycodone 5 mg PO Q6H PRN #10 tab 04/21/20 Allergies Allergy/AdvReac Type Severity Reaction Status Date / Time levofloxacin [From Levaquin] Allergy Intermediate Hives Verified 05/11/19 09:55 General Stated Complaint: Orthopedic FALGUNI: 4 Review of Systems All systems reviewed & are unremarkable except as noted in HPI and below Constitutional Constitutional: Reports as per HPI, Denies chills and Denies fever(s) Eyes Eyes: Denies blurry vision ENT Ears, Nose, Mouth, and Throat: Denies dizziness, Denies sore throat and Denies throat swelling Cardiovascular Cardiovascular: Denies chest pain and Denies dyspnea Respiratory Respiratory: Denies cough and Denies dyspnea Gastrointestinal Gastrointestinal: Denies abdominal pain, Denies diarrhea and Denies vomiting Genitourinary Genitourinary: Denies hematuria and Denies dysuria Musculoskeletal Musculoskeletal: Denies back pain and Denies numbness Comments: Left arm pain Integumentary/Breasts Skin/Breast: Denies lesions and Denies rash Neurologic Neurologic: Denies dizziness, Denies localized weakness and Denies numbness Allergic/Immunologic Allergic/Immunologic: Denies throat swelling PFSH Medical History (Updated 04/21/20 @ 17:33 by Margarita Cornelius DO) HTN (hypertension) Polycystic disease, ovaries Surgical History (Updated 04/21/20 @ 15:36 by Margarita Cornelius DO) H/O section Social History Smoking/Tobacco Use Status: Never Smoking risk assessment performed?: Yes Alcohol Intake: never Drug use: Never Substance use type: does not use Current gender identity: female Do you feel safe at home: Yes Do you feel safe in your relationship?: Yes Exam Const General: cooperative, healthy appearing and no acute distress HENMT Head: normal to inspection Mouth: oral mucosae normal Eyes General: appearance normal, both eyes and all related structures Neck Neck: normal visual inspection Resp Effort & Inspection: normal respiratory effort and able to speak in complete sentences Cardio Rate: regular rate Skin General skin exam: no rashes or lesions noted Neuro General: patient alert, patient awake and patient oriented x3 Motor: muscle tone normal throughout Extrem Shoulder/upper arm images: 1. Tenderness to palpation to left mid to distal humerus. No deformities noted. Patient keeping left arm close to body. Other: No tenderness to palpation of L shoulder, elbow or wrist. Left knee normal to inspection. Right upper extremity normal to inspection with normal range of motion. Psych Appearance: grossly normal Affect: normal affect Course Vital Signs Vital signs: Vital Signs Temperature 97.5 F L 04/21/20 15:09 Pulse 83 04/21/20 15:09 Respiratory Rate 22 04/21/20 15:09 Blood Pressure 135/93 H 04/21/20 15:09 Pulse Oximetry 97 04/21/20 15:09 Temperature 97.5 F L 04/21/20 15:09 Temperature Source Skin 04/21/20 15:09 Pulse 83 04/21/20 15:09 Respiratory Rate 22 04/21/20 15:09 Respiratory Effort Non-Labored 04/21/20 15:14 Blood Pressure 135/93 H 04/21/20 15:09 Blood Pressure Position Sitting 04/21/20 15:09 Pulse Oximetry 97 04/21/20 15:09 Oxygen Delivery Method Room Air 04/21/20 15:09 Oxygen Flow Rate 0 04/21/20 15:09 Pain Level 8 04/21/20 15:09
[2020-04-21] MEDS: oxyCODONE 5 MG TAB PO ×2 (15:40→17:47)
--- NOTE | 2020-04-21 16:10 | DI.VRAD_ITS ---
PROCEDURE INFORMATION: Exam: XR Left Humerus Exam date and time: 04/21/2020 4:02 PM Age: 40 years old Clinical indication: Pain; Upper arm; Left TECHNIQUE: Imaging protocol: XR Left humerus Views: 2 or more views. COMPARISON: No relevant prior studies available. FINDINGS: Bones/joints: Irregularity of base of the greater tuberosity of the humerus suspicious for nondisplaced fracture. Dedicated shoulder radiographs are recommended. Left humerus is otherwise normal. Soft tissues: Normal. IMPRESSION: Possible fracture greater tuberosity of the left humerus. Recommended dedicated shoulder radiographs. Dictated and Authenticated by: Raiza Son MD. Ordering:KENDALL Avila MD
--- NOTE | 2020-04-21 16:15 | DI.RAD_ITS ---
EXAM: XR SHOULDER LT COMPLETE 2+V CLINICAL HISTORY: s/p fall, r/o acute fx greater tuberosity. TECHNIQUE: 2D digital imaging was performed. COMPARISON: No exams were available for comparison FINDINGS: BONES: There is an acute nondisplaced fracture of the greater tuberosity of the left humerus. No bon y destructive lesion is seen. JOINTS: No dislocation present. SOFT TISSUE: Normal. IMPRESSION: Nondisplaced fracture of the greater tuberosity of the left humerus. DATA REPOSITORY: RADIATION DOSE DELIVERED:
--- NOTE | 2020-04-21 17:31 | DI.VRAD_ITS ---
PROCEDURE INFORMATION: Exam: XR Left Shoulder Exam date and time: 04/21/2020 4:17 PM Age: 40 years old Clinical indication: Injury or trauma; Fall; Blunt trauma (contusions or hematomas); Elbow; Left TECHNIQUE: Imaging protocol: XR Left shoulder. Views: 2 or more views. COMPARISON: No relevant prior studies available. FINDINGS: Bones/joints: Nondisplaced fracture of the greater tuberosity of the left humerus. The bones of the left shoulder are otherwise normal. Soft tissues: Normal. IMPRESSION: Nondisplaced fracture of the greater tuberosity of the left humerus. Dictated and Authenticated by: Raiza Son MD. Ordering:KENDALL Avila MD
== END 2020-04-21 17:45 | disposition home or self-care (01) ==
PROVIDERS: Emergency Provider Physician Assistant; PCP Nurse Practitioner Family
DX: S42.202A Unspecified fracture of upper end of left humerus, initial encounter for closed fracture (principal); W00.0XXA Fall on same level due to ice and snow, initial encounter
CPT/HCPCS: 81025; 99284; 73030; 73060

== ENCOUNTER 2020-04-27 15:07 | Outpatient (CLI) | payer MEDICAID, SELFPAY ==
--- NOTE | 2020-04-27 13:45 | DI.RAD_ITS ---
EXAM: XR SHOULDER LT COMPLETE 2+V INDICATION: follow up. COMPARISON: CR,XR XR SHOULDER LT COMPLETE 2+V from 04/21/2020 TECHNIQUE: 2D digital imaging was performed. FINDINGS: There has been no change in the alignment of the nondisplaced fracture at the greater tuberosity. No new abnormalities are seen. DATA REPOSITORY: RADIATION DOSE DELIVERED:
== END 2020-04-27 15:27 ==
PROVIDERS: PCP Nurse Practitioner Family; Referring Provider Nurse Practitioner Family; Visit Provider Physician Assistant Surgical
DX: S42.255A Nondisplaced fracture of greater tuberosity of left humerus, initial encounter for closed fracture (principal)
CPT/HCPCS: 73030

== ENCOUNTER 2020-05-10 09:30 | Outpatient (CLI) | payer MEDICAID, SELFPAY ==
--- NOTE | 2020-05-10 08:45 | DI.RAD_ITS ---
EXAM: XR SHOULDER LT COMPLETE 2+V CLINICAL HISTORY: f/u. TECHNIQUE: 2D digital imaging was performed. COMPARISON: CR XR SHOULDER LT COMPLETE 2+V from 04/27/2020 FINDINGS: BONES: There has been no change in alignment of the greater tuberosity fracture. No new fracture is identified. No bony destructive lesion is seen. JOINTS: No dislocation present. SOFT TISSUE: Normal. IMPRESSION: Stable greater tuberosity fracture. DATA REPOSITORY: RADIATION DOSE DELIVERED:
== END 2020-05-10 09:31 | disposition home or self-care (01) ==
LOC: DIORS 09:31
PROVIDERS: PCP Nurse Practitioner Family; Referring Provider Nurse Practitioner Family; Visit Provider Student in an Organized Health Care Education/Training Program
DX: S42.252A Displaced fracture of greater tuberosity of left humerus, initial encounter for closed fracture (principal)
CPT/HCPCS: 73030

== ENCOUNTER 2020-06-15 11:21 | Outpatient (CLI) | payer MEDICAID, SELFPAY ==
--- NOTE | 2020-06-15 09:59 | DI.RAD_ITS ---
EXAM: XR SHOULDER LT COMPLETE 2+V CLINICAL HISTORY: f/u. TECHNIQUE: 2D digital imaging was performed. COMPARISON: CR XR SHOULDER LT COMPLETE 2+V from 05/10/2020 FINDINGS: Two views reveal no evidence of fracture or dislocation no abnormal soft calcifications. No obvious degenerative changes in the glenohumeral joint. There is a subarticular small degenerative cyst on t he clavicular side of the AC joint. This appears unchanged from prior study. No ominous osseous les ions. IMPRESSION: DATA REPOSITORY: RADIATION DOSE DELIVERED:
== END 2020-06-15 11:22 | disposition home or self-care (01) ==
LOC: DIORS 11:21
PROVIDERS: PCP Nurse Practitioner Family; Referring Provider Nurse Practitioner Family; Visit Provider Student in an Organized Health Care Education/Training Program
DX: S42.252D Displaced fracture of greater tuberosity of left humerus, subsequent encounter for fracture with routine healing
CPT/HCPCS: 73030

== ENCOUNTER 2020-09-09 12:10 | Outpatient (REF) | payer MEDICAID, SELFPAY ==
[2020-09-09 14:07] LABS: Abs Immature Grans 0.01 10^3/uL (0.0-0.06); Absolute Basophil Count 0.06 10^3/uL (0.0-0.2); Absolute Eosinophil Count 0.24 10^3/uL (0.0-0.7); Absolute Lymphocyte Count 2.26 10^3/uL (1.2-3.4); Absolute Monocyte Count 0.41 10^3/uL (0.1-0.8); Absolute Neutrophil Count 3.45 10^3/uL (1.2-6.7); Basophils % 0.9; Eosinophils % 3.7; HCT 42.6 % (36.0-46.0); HGB 13.6 g/dL (11.2-15.7); Immature Grans % 0.2; Lymphocytes % 35.1; MCH 29.4 pg (27.0-33.0); MCHC 31.9 % (32.0-36.0); MCV 92.2 fL (80-95); MPV 9.1 fL (8.0-11.0); Monocytes % 6.4; Neutrophils % 53.7; Nucleated RBC 0 %; Platelet Count 365 10^3/uL (130-400); RBC 4.62 10^6/uL (3.93-5.22); RDW 12.1 % (11.7-14.6); RDW-SD 40.9 fL; WBC 6.43 10^3/uL (4.4-10.8)
[2020-09-09 15:40] LABS: Anion Gap 8.3 mmol/L (3-11); BUN 10 mg/dL (7-18); CO2 27.7 mmol/L (21.0-32.0); CREATININE 0.6 mg/dL (0.55-1.02); Calcium 8.7 mg/dL (8.5-10.1); Calculated LDL 181 mg/dL (<100); Chloride 103 mmol/L (98-107); Cholesterol 263 mg/dL (<200); Glucose 89 mg/dL (74-106); HDL Cholesterol 50 mg/dL (40-60); Magnesium 1.8 mg/dL (1.8-2.4); Potassium 4.3 mmol/L (3.5-5.1); Sodium 139 mmol/L (136-145); TSH (W/Ref FT4) 1.39 uIU/mL (0.36-3.74); Triglyceride 162 mg/dL (<150); Vitamin B12 315 pg/mL (193-986)
[2020-09-09 16:20] LABS: Iron 91 ug/dL (50-170); Total Iron Binding Capacity 320 ug/dL (250-450); Transferrin Sat 28 % (15-50)
[2020-09-09 16:45] LABS: Hemoglobin A1C 5.6 % (<5.7)
== END 2020-09-09 12:11 | disposition home or self-care (01) ==
LOC: NCHCN 12:10
PROVIDERS: PCP Nurse Practitioner Family; Visit Provider Nurse Practitioner Family
DX: N92.0 Excessive and frequent menstruation with regular cycle (principal); I10 Essential (primary) hypertension; R42 Dizziness and giddiness; K30 Functional dyspepsia; F43.10 Post-traumatic stress disorder, unspecified; E66.9 Obesity, unspecified; J45.20 Mild intermittent asthma, uncomplicated
CPT/HCPCS: 80048; 80061; 82607; 83036; 83540; 83550; 83735; 84443; 85025

== ENCOUNTER 2020-10-10 03:33 | Outpatient (CLI) | payer MEDICAID, SELFPAY ==
[2020-10-10] MEDS: Albuterol HFA 18 GM 200 PUFF INH IH (11:14)
[2020-10-10] MEDS: Inhaler, Assist Device 1 EACH MC (11:15)
--- NOTE | 2020-10-10 13:44 | W.PFT ---
Date of service: 10/10/20 Time of Service: 10:02 Pulmonary Function Test Result Interpretation Spirometry: No evidence of obstructive airways disease, no bronchodilator response Lung Volumes: Appears to be consistent with mild restrictive pattern, slow vital capacity is not reported. That should be measured. Diffusion Capacity: Normal Airway Pressure: Borderline mildly elevated. May be a normal variant Impression Appears to be consistent with mild restrictive pattern, slow vital capacity is not reported. That should be measured. This constellation of findings can represent early, developing restrictive lung disease, but also can represent chest wall restriction from underlying obesity or respiratory neuromuscular dysfunction. Slow vital capacity should be measured and reported Clinical Correlation therefore is recommended.
== END 2020-10-10 03:34 | disposition home or self-care (01) ==
LOC: RT 03:33
PROVIDERS: PCP Nurse Practitioner Family; Visit Provider Nurse Practitioner Family
DX: J45.20 Mild intermittent asthma, uncomplicated (principal)
CPT/HCPCS: 94060; 94726; 94729

== ENCOUNTER → 2021-08-22 01:35 | Outpatient (CLI) | payer MEDICAID, SELFPAY ==
--- NOTE | 2021-08-22 14:10 | DI.CT_ITS ---
Exam(s) CT CHEST HIGH RESOLUTION EXAM: CT CHEST HIGH RESOLUTION CLINICAL HISTORY: restriction on PFT, abnormal CXR, rule out ILD, J98.4, RESTRICTIVE LUNG DIS TECHNIQUE: COMPARISON: CR XR CHEST 2V PA LATERAL from 05/26/2018 FINDINGS: CT examination of the chest was performed without contrast administration utilizing helical and inspi ratory and expiratory high-resolution scanning. Expiratory scan is unremarkable with slight air trap ping in scattered pattern. Pulmonary interstitial markings appear normal. No abnormality of the tra cheobronchial tree seen. No mediastinal or hilar adenopathy. No pleural effusion or pleural-based m ass. Images obtained through the upper abdomen show a nonobstructing left renal calculus and multiple gall stones. Visualized portions of liver, pancreas, and spleen are unremarkable and there is no biliary dilatation. Cardiac size is within normal limits. IMPRESSION: Negative high-resolution chest CT. No evidence interstitial lung disease. RADIATION DOSE DELIVERED: 937.8mGy.cm Total DLP !Error CTDIvol RADIATION OPTIMIZATION: All CT scans at this facility use at least one of these dose optimization te chniques: automated exposure control; mA and/or kV adjustment per patient size (includes targeted exa ms where dose is matched to clinical indication); or iterative reconstruction.
== END ==
PROVIDERS: PCP Nurse Practitioner Family; Visit Provider Student in an Organized Health Care Education/Training Program
DX: J98.4 Other disorders of lung (principal)
CPT/HCPCS: 71250

== ENCOUNTER 2022-02-20 20:35 | Outpatient (REF) | payer MEDICAID, SELFPAY ==
[2022-02-20 15:00] LABS: Abs Immature Grans 0.01 10^3/uL (0.0-0.06); Absolute Basophil Count 0.08 10^3/uL (0.0-0.2); Absolute Eosinophil Count 0.29 10^3/uL (0.0-0.7); Absolute Lymphocyte Count 2.22 10^3/uL (1.2-3.4); Absolute Monocyte Count 0.37 10^3/uL (0.1-0.8); Absolute Neutrophil Count 3.22 10^3/uL (1.2-6.7); Basophils % 1.3; Eosinophils % 4.7; HCT 46.3 % (36.0-46.0); HGB 14.9 g/dL (11.2-15.7); Immature Grans % 0.2; Lymphocytes % 35.9; MCH 29.6 pg (27.0-33.0); MCHC 32.2 % (32.0-36.0); MCV 92 fL (80-95); MPV 9.5 fL (8.0-11.0); Neutrophils % 51.9; Platelet Count 310 10^3/uL (130-400); RBC 5.03 10^6/uL (3.93-5.22); RDW 12.5 % (11.7-14.6); RDW-SD 42.4 fL; WBC 6.19 10^3/uL (4.4-10.8)
[2022-02-20 15:42] LABS: Ferritin 111 ng/mL (8-252); TSH (W/Ref FT4) 1.74 uIU/mL (0.36-3.74)
[2022-02-20 16:56] LABS: Iron 70 ug/dL (50-170); Total Iron Binding Capacity 357 ug/dL (250-450); Transferrin Sat 20 % (15-50)
== END 2022-02-20 20:36 | disposition home or self-care (01) ==
LOC: NCHCN 20:35
PROVIDERS: PCP Nurse Practitioner Family; Visit Provider Nurse Practitioner Family
DX: I10 Essential (primary) hypertension (principal); E78.5 Hyperlipidemia, unspecified; K30 Functional dyspepsia; J98.4 Other disorders of lung; F41.9 Anxiety disorder, unspecified
CPT/HCPCS: 82728; 83540; 83550; 84443; 85025

== ENCOUNTER 2022-04-01 14:19 | Emergency (ER) | payer MEDICAID, SELFPAY ==
[2022-04-01 14:23] VITALS: BP 153/97; PULSE 103; RESP 20; TEMP 37.1; O2SAT 95
--- NOTE | 2022-04-01 14:45 | DI.RAD_ITS ---
Exam(s) XR CHEST 2V PA LATERAL EXAM: XR CHEST 2V PA LATERAL CLINICAL HISTORY: cough TECHNIQUE: 2D digital imaging was performed. COMPARISON: CT CT CHEST HIGH RESOLUTION from 08/22/2021 FINDINGS: HEART: Normal size. Aorta: Not dilated. PULMONARY VASCULATURE: Normal. LUNGS: Clear. PLEURAL SPACE: No pleural effusion or pneumothorax. BONE:Unremarkable for age. IMPRESSION: No acute abnormality. DATA REPOSITORY: RADIATION DOSE DELIVERED:
[2022-04-01] MEDS: Dexamethasone 10 MG/ML VIAL PO (14:54)
[2022-04-01] MEDS: Albuterol/Ipratropium 3 ML UPD VIAL UPD (14:55)
[2022-04-01 15:00] VITALS: BP 125/86; PULSE 94; RESP 16; TEMP 37.7; O2SAT 94
--- NOTE | 2022-04-01 15:25 | DI.VRAD_ITS ---
PROCEDURE INFORMATION: Exam: XR Chest Exam date and time: 04/01/2022 3:07 PM Age: 42 years old Clinical indication: Cough TECHNIQUE: Imaging protocol: Radiologic exam of the chest. Views: 2 views. COMPARISON: CT CHEST HIGH RESOLUTION 08/22/2021 2:02 PM FINDINGS: Lungs: Unremarkable. No consolidation. Pleural spaces: Unremarkable. No pleural effusion. No pneumothorax. Heart/Mediastinum: Unremarkable. No cardiomegaly. Bones/joints: Unremarkable. IMPRESSION: No evidence for acute abnormality. Dictated and Authenticated by: Mariama Perkins MD. Ordering:NITO Linares MD
--- NOTE | 2022-04-01 15:41 | ED.GENADUL_ITS ---
Discharge Plan Disposition Patient Disposition: Home Condition: Stable Discharge Details Clinical Impression: Influenza B Primary Care Provider: Ene Cuevas ED Provider: Vijay Oconnor Home Meds and New Rx's Prescriptions: New prednisone 20 mg tablet 40 mg PO DAILY Qty: 8 0RF Continued acyclovir 400 MG tablet 400 mg PO BID Qty: 60 11RF hydroxyzine HCl 25 mg tablet 25 mg PO QHS PRN Claritin Liqui-Gel 10 mg capsule 10 mg PO DAILY (DME) Space Chamber Spacer See Rx Instructions .ROUTE .MEDSUPPLY Qty: 1 Rx Instructions: As directed albuterol sulfate [ProAir HFA] 90 mcg/actuation HFA aerosol inhaler 2 puff inhalation Q6H PRN topiramate [Topamax] 50 mg tablet 50 mg PO BID sertraline 100 mg Tablet 100 mg PO DAILY buspirone 10 mg tablet 10 mg PO BID Label Comments: TAKE 1 TABLET BY MOUTH TWICE DAILY omeprazole 20 mg capsule,delayed release(DR/EC) 20 mg PO DAILY Label Comments: TAKE 1 CAPSULE BY MOUTH ONCE DAILY Discharge Instructions Instructions: Influenza (ED) Additional Instructions: Please continue to get plenty of rest and stay well-hydrated. Please use inhaler as directed. If you develop any new or significant worsening of symptoms return the emergency department for reassessment otherwise you may continue to use [id number] cough and cold medications that match your symptoms just take as directed on packaging. If not improving in the next week please follow-up with your primary care provider Referrals: Ene Cuevas [Primary Care Provider] - 1 week (As needed for reassessment or if not improving in the next week) Discharge Data Discharge Date/Time-TO BE ENTERED AT DEPARTURE: 04/01/22 16:30 Medical Decision Making Patient presenting to the emergency department for chief complaint of cough, chest congestion, chest tightness, shortness of breath runny nose for the last 2 days. Patient denies any sore throat, nausea vomiting, or belly pain. Patient does have history of restrictive lung disease and some anxiety. Physical exam shows diffuse wheezing throughout all lung taylor, no tachycardia, no hypoxia, unremarkable HEENT exam. We will plan on performing chest x-ray and viral swab. Pending results we will give patient Decadron and updraft inhaler. Review of viral swab shows patient is flu be positive. Chest x-ray reviewed and radiologist interpretation also stated no acute cardiopulmonary findings noted. Patient was reassessed and had continued but improved wheezing and stated she did feel better. I do feel this is reassuring. Did discuss with patient risk versus benefit of antivirals which she was agreeable to receiving and will give single dose of Xofluza in the emergency department due to timing I would like her to start this right away. Also will place patient on prednisone burst and albuterol inhaler. After discussion of diagnosis and plan of care patient has no further needs, questions, or concerns and states clear understanding to return to the emergency department for any worsening symptoms. This documentation was generated using [employer] dictation system, please disregard any oddities of phrase or misspellings. Imaging Data Radiologic Study: Imaging: X-Ray Radiologist's impression: Exam: XR Chest Exam date and time: 04/01/2022 3:07 PM Age: 42 years old Clinical indication: Cough TECHNIQUE: Imaging protocol: Radiologic exam of the chest. Views: 2 views. COMPARISON: CT CHEST HIGH RESOLUTION 08/22/2021 2:02 PM FINDINGS: Lungs: Unremarkable. No consolidation. Pleural spaces: Unremarkable. No pleural effusion. No pneumothorax. Heart/Mediastinum: Unremarkable. No cardiomegaly. Bones/joints: Unremarkable. IMPRESSION: No evidence for acute abnormality. HPI General Mode of arrival: ambulatory . Date/Time Provider Initiated Documentation: 04/01/22 14:34 . Limitations to Documentation: no limitations . Information obtained by: patient and RN notes reviewed . History of Present Illness 42 year old F presents to the emergency department with the chief complaint of Cough, shortness of breath, headache and chest tightness, described as moderate, with intensity rated at 6. Quality is described as aching, and is localized to the chest. Patient reports no radiation. Patient started experiencing this day(s) (2) and it has been constant. No r elieving factors improve symptom(s), No exacerbating factors reported . Patient did receive the following treatments prior to arrival, none Related Data Home Medications Medication Instructions Recorded Confirmed acyclovir 400 mg tablet 400 mg PO BID #60 tab-caps 07/08/17 04/01/22 sertraline 100 mg tablet 100 mg PO DAILY 04/25/18 04/01/22 buspirone 10 mg tablet 10 mg PO BID 04/21/20 04/01/22 omeprazole 20 mg capsule,delayed 20 mg PO DAILY 04/21/20 04/01/22 release albuterol sulfate 90 mcg/actuation 2 puff inhalation Q6H PRN 04/13/21 04/01/22 aerosol inhaler (ProAir HFA) hydroxyzine HCl 25 mg tablet 25 mg PO QHS PRN 04/13/21 04/01/22 inhalational spacing device (Space #1 ea 04/13/21 07/24/21 Chamber) loratadine 10 mg capsule (Claritin 10 mg PO DAILY 04/13/21 04/01/22 Liqui-Gel) topiramate 50 mg tablet (Topamax) 50 mg PO BID 04/13/21 04/01/22 prednisone 20 mg tablet 40 mg PO DAILY #8 tabs 04/01/22 Previous Rx's Medication Instructions Recorded acyclovir 400 mg tablet 400 mg PO BID #60 tab-caps 07/08/17 prednisone 20 mg tablet 40 mg PO DAILY #8 tabs 04/01/22 Allergies Allergy/AdvReac Type Severity Reaction Status Date / Time levofloxacin [From Levaquin] Allergy Intermediate Hives Verified 07/24/21 14:35 amoxicillin Allergy Unverified 04/01/22 14:29 General Stated Complaint: RespSymp FALGUNI: 3 Review of Systems Constitutional Constitutional: Reports body ache(s), Reports chills, Reports fever(s), Reports headache(s) and Reports malaise Eyes Eyes: Denies eye discharge ENT Ears, Nose, Mouth, and Throat: Reports as per HPI, Denies ear discharge, Denies otalgia, Reports headache(s), Reports nasal congestion, Denies neck pain, Denies sore throat and Denies throat swelling Cardiovascular Cardiovascular: Denies chest pain and Reports dyspnea Respiratory Respiratory: Reports chest congestion, Reports cough, Reports pain with cough and Reports dyspnea Musculoskeletal Musculoskeletal: Denies joint swelling and Denies neck pain Integumentary/Breasts Skin/Breast: Denies rash Neurologic Neurologic: Reports headache(s) Allergic/Immunologic Allergic/Immunologic: Denies throat swelling PFSH All Active Problems (Updated 04/01/22 @ 15:51 by Vijay Oconnor NP) Influenza B (Acute) Asthma (Chronic) Onychomycosis of toenail (Acute) Obesity (Chronic) Headache (Acute) Hypomagnesemia (Acute) Facial flushing (Acute) Night sweats (Acute) Caregiver role strain (Acute) Anxiety (Chronic) Unresolved grief (Acute) Acute post-traumatic stress disorder (Acute) Varicose veins of right lower extremity (Acute) Genital herpes (Acute) Dyspepsia (Acute) Dizziness (Acute) Hyperlipidemia (Acute) Restrictive lung disease (Acute) Fracture of greater tuberosity of humerus (Acute 04/21/20) Oligomenorrhea, unspecified (Acute) Miscarriage (Acute) Threatened miscarriage in early (Acute) Medical History (Updated 04/01/22 @ 15:51 by Vijay Oconnor NP) HTN (hypertension) Lower back pain Polycystic disease, ovaries Surgical History H/O section Social History Smoking/Tobacco Use Status: Never Smoking risk assessment performed?: Yes Alcohol Intake: current Alcohol Intake frequency: holidays/special occasions only Drug use: Never Substance use type: does not use Current gender identity: female Do you feel safe at home: Yes Do you feel safe in your relationship?: Yes Exam Const General: cooperative, comfortable and no acute distress Orientation: alert and awake HENMT Head: normal to inspection, normocephalic and atraumatic Ears: hearing grossly normal bilaterally and TM's normal bilaterally General nose exam: external nose normal Face and sinus: no erythema Mouth: oral mucosae normal, no drooling, no muffled voice and no trismus Throat: posterior oropharynx normal Neck Neck: normal visual inspection, full ROM, no lymphadenopathy, no meningeal signs, trachea midline and supple Resp Effort & Inspection: normal respiratory effort, able to speak in complete sentences and cough Quality of cough: dry Auscultation: wheezes expiratory wheezes and scattered wheezes Cardio Rate: regular rate Rhythm: regular rhythm Heart Sounds: S1 normal, S2 normal, normal S1 and S2, no click, no gallops, no murmurs and no rubs Skin General skin exam: no rashes or lesions noted and dry skin (warm) Neuro General: patient alert, patient awake, patient oriented x3, gait normal and moves all extremities Cognition: normal cognition Speech: speech normal Course Vital Signs Vital signs: Vital Signs Temperature 37.1 C 04/01/22 14:23 Pulse 103 H 01/01/23 14:23 Respiratory Rate 20 04/01/22 14:23 Blood Pressure 153/97 H 04/01/22 14:23 Pulse Oximetry 95 04/01/22 14:23 Temperature 37.7 C H 04/01/22 15:00 Temperature Source Oral 04/01/22 14:23 Pulse 94 H 04/01/22 15:00 Respiratory Rate 16 04/01/22 15:00 Respiratory Effort Short of Breath 04/01/22 15:00 Respiratory Depth Normal 04/01/22 15:00 Blood Pressure 125/86 04/01/22 15:00 Blood Pressure Position Sitting 04/01/22 14:23 Pulse Oximetry 94 04/01/22 15:00 Oxygen Delivery Method Room Air 04/01/22 15:00 Oxygen Flow Rate 0 04/01/22 15:00 Pain Level 0 04/01/22 15:00 PAWSS Have you Been Recently Intoxicated or Drunk Within the Last 30 days?: No Have you Ever Experienced Previous Episodes of Alcohol Withdrawal?: No Have you ever Experienced Withdrawal Seizures?: No Have you ever Experienced Delirium Tremens(DT)s?: No Have you ever undergone Alcohol Rehabilitation Treatment (i.e, inpt ot outpatient treatment programs)?: No Have you ever Experienced Blackouts?: No Have you ever Combined Alcohol with other Downers within the last 90 days?: No Have you ever Combined Alcohol with any other Substance of Abuse during the last 90 days?: No Positive Blood Alcohol level on Presentation? [PCS.BAL]: No Evidence of Increased Autonomic Activity (i.e. HR>120, tremor, sweating, agitation, nausea)?: No Result: 0
[2022-04-01] MEDS: Albuterol HFA 8 GM 60 PUFF INH IH (16:03)
[2022-04-01 16:04] VITALS: BP 130/83; PULSE 107; RESP 16; TEMP 38.1; O2SAT 94
[2022-04-01] MEDS: Inhaler, Assist Device 1 EACH MC (16:04)
== END 2022-04-01 16:30 | disposition home or self-care (01) ==
PROVIDERS: Emergency Provider Nurse Practitioner Family; PCP Nurse Practitioner Family
DX: J10.1 Influenza due to other identified influenza virus with other respiratory manifestations (principal); I10 Essential (primary) hypertension; Z20.822 Contact with and (suspected) exposure to COVID-19
CPT/HCPCS: 94640; 99284; 71046; J1100; J7620

== ENCOUNTER 2022-04-05 19:18 | Outpatient (CLI) | payer MEDICAID, SELFPAY ==
--- NOTE | 2022-04-05 | DI.RAD_ITS ---
Exam(s) XR CHEST 2V PA LATERAL EXAM: XR CHEST 2V PA LATERAL CLINICAL HISTORY: HEMOPTYSIS TECHNIQUE: 2D digital imaging was performed. COMPARISON: CR,XR XR CHEST 2V PA LATERAL from 04/01/2022 FINDINGS: HEART: Normal size. Aorta: Not dilated. PULMONARY VASCULATURE: Normal. LUNGS: Question of a vague patchy density adjacent to the right hilum which could represent a superim posed structures versus infiltrate. PLEURAL SPACE: No pleural effusion or pneumothorax. BONE:Unremarkable for age. IMPRESSION: Question of a right middle lobe infiltrate. DATA REPOSITORY: RADIATION DOSE DELIVERED:
--- NOTE | 2022-04-05 20:30 | DI.VRAD_ITS ---
PROCEDURE INFORMATION: Exam: XR Chest Exam date and time: 04/05/2022 7:53 PM Age: 42 years old Clinical indication: Other: Hemoptysis TECHNIQUE: Imaging protocol: Radiologic exam of the chest. Views: 2 views. COMPARISON: CR XR CHEST 2V PA LATERAL 04/01/2022 3:07 PM FINDINGS: Lungs: Peribronchial thickening and question vague right middle lobe opacity. Pleural spaces: No pleural effusion. No pneumothorax. Heart/Mediastinum: Unremarkable. No cardiomegaly. Bones/joints: Unremarkable. Mild non-specific gaseous distention in the left upper quadrant bowel loops IMPRESSION: Question vague right middle lobe opacity which may represent subsegmental atelectasis versus developing pneumonia. Dictated and Authenticated by: Ha Montano MD. Ordering:BOBBY Ortega MD
== END 2022-04-05 19:38 ==
PROVIDERS: PCP Nurse Practitioner Family; Visit Provider Physician Assistant Medical
DX: R04.2 Hemoptysis (principal); R91.8 Other nonspecific abnormal finding of lung field
CPT/HCPCS: 71046

== ENCOUNTER 2022-04-07 11:55 | Emergency (ER) | payer MEDICAID, SELFPAY ==
[2022-04-07 12:03] VITALS: BP 133/81; PULSE 90; RESP 17; TEMP 36.5; O2SAT 93
--- NOTE | 2022-04-07 12:17 | DI.CT_ITS ---
Exam(s) CT CHEST PE CTA EXAM: CT CHEST PE CTA CLINICAL HISTORY: SOB, Hemoptysis. TECHNIQUE: Imaging Protocol: Axial CT angiography was performed with multi-slice acquisition and mu lti-planar reconstructions as well as axial, coronal and sagittal MIP reconstructions. CONTRAST MATERIAL: Intravenous: Omnipaque 350 Contrast volume:100 ml COMPARISON: CT CT CHEST HIGH RESOLUTION from 08/22/2021 FINDINGS: Exam is limited by respiratory motion. Pulmonary Arteries: No evidence of filling defect to suggest pulmonary emboli. Tracheobronchial tree: Patent where visualized. Mediastinum and Patricia: No dominant adenopathy or fluid collection. Pulmonary parenchyma: Evaluation limited by respiratory motion and expiratory changes. No consolidat ion or dominant measurable mass. Pleura: No effusion or pneumothorax. Heart: The heart is not dilated. No coronary artery calcifications are seen. Aorta: Thoracic aorta non-dilated. No aneurysm. No dissection. Upper abdomen: Numerous calcified gallstones noted in gallbladder. No gallbladder wall thickening or biliary dilatation. Bones: Unremarkable for age. Tubes, Catheters, and Lines: None IMPRESSION: No evidence of pulmonary embolism. No acute abnormality. RADIATION DOSE DELIVERED: 660.27mGy.cm Total DLP DATA REPOSITORY: All CT scans at this facility are submitted to the National Radiology Data Registry (NRDR) Dose Index Registry (DIR) with the [employer] (A[employer]). RADIATION OPTIMIZATION: All CT scans at this facility use at least one of these dose optimization te chniques: automated exposure control; mA and/or kV adjustment per patient size (includes targeted exa ms where dose is matched to clinical indication); or iterative reconstruction.
--- NOTE | 2022-04-07 12:19 | ED.GENADUL_ITS ---
Discharge Plan Disposition Patient Disposition: Home Condition: Stable Discharge Details Clinical Impression: Respiratory syncytial virus (RSV) infection Primary Care Provider: Ene Cuevas ED Provider: Evelyn Santiago Home Meds and New Rx's Prescriptions: New prednisone 20 mg tablet 60 mg PO DAILY 9 Days Qty: 17 0RF Rx Instructions: Take 3 tabs daily x 3 days, Take 2 tabs daily x 3 days, Take one tab daily x 3 days. Continued acyclovir 400 MG tablet 400 mg PO BID Qty: 60 11RF hydroxyzine HCl 25 mg tablet 25 mg PO QHS PRN Claritin Liqui-Gel 10 mg capsule 10 mg PO DAILY (DME) Space Chamber Spacer See Rx Instructions .ROUTE .MEDSUPPLY Qty: 1 Rx Instructions: As directed albuterol sulfate [ProAir HFA] 90 mcg/actuation HFA aerosol inhaler 2 puff inhalation Q6H PRN topiramate [Topamax] 50 mg tablet 50 mg PO BID doxycycline hyclate 100 mg capsule 1 cap PO BID Rx Instructions: take for 5 days- picked up 04/06/2022 sertraline 100 mg Tablet 100 mg PO DAILY buspirone 10 mg tablet 10 mg PO BID Label Comments: TAKE 1 TABLET BY MOUTH TWICE DAILY omeprazole 20 mg capsule,delayed release(DR/EC) 20 mg PO DAILY Label Comments: TAKE 1 CAPSULE BY MOUTH ONCE DAILY Discharge Instructions Instructions: Viral Syndrome (ED) Additional Instructions: Continue using the albuterol inhaler 1 to 2 puffs every 4-6 hours as needed for wheezing and shortness of breath. Take the prednisone as prescribed. You are given the first dose here. Follow up with primary care provider in 3-5 days. Return to ED sooner if any worsening or concerns. Increase oral fluids. Your swab came back positive for RSV which is a virus. Please stay off work at least 3 to 5 days after symptoms have stopped. Referrals: Ene Cuevas [Primary Care Provider] - 5 days Medical Decision Making 42-year-old female presents to the ER with chief complaint shortness of breath, hemoptysis and wheezing after being diagnosed with influenza approximately 1 week ago. Patient was seen here in the emergency department on the first and was seen in [facility] urgent care couple days and thereafter. Patient reports she was diagnosed with pneumonia received a chest x-ray and was placed on doxycycline which she is currently still taking. She reports that she woke up this morning with increased shortness of breath with exertion. Denies any fever chills denies any chest pain or swelling in her legs. She does have some expiratory Wheezes which are scattered throughout on auscultation. Due to patient's complaint of shortness of breath hemoptysis labs ordered including CBC CMP urine , CT chest rule out PE. A DuoNeb was ordered. CBC shows no leukocytosis, absolute lymphocytes 3.72, sodium 143, potassium 3.0, alk phos 121 COVID and flu are negative, RSV is positive. Patient was given 40 mEq potassium p.o. Discussed home care with patient who verbalized understanding. I did discuss the RSV positive results with her. She verbalized understanding. Did instruct her to continue taking the doxycycline and use the albuterol inhaler as prescribed. This text was generated using [employer] system, please disregard any oddities of phrase or misspellings. Medical Records Medical records reviewed: Yes I reviewed the patient's medical records. Imaging Data Radiologic Study: Imaging: CT Scan Radiologist's impression: COMPARISON: CT CHEST HIGH RESOLUTION 08/22/2021 2:02 PM FINDINGS: Pulmonary arteries: No evidence of pulmonary embolus to the segmental level. Aorta: No aneurysm of the aorta. No dissection of the aorta. Lungs: Unremarkable. No consolidation. No masses. Pleural spaces: Unremarkable. No pneumothorax. No pleural effusion. Heart: Unremarkable. No cardiomegaly. No pericardial effusion. Lymph nodes: Unremarkable. No enlarged lymph nodes. Gallbladder and bile ducts: Multiple gallstones in the gallbladder. Bones/joints: Unremarkable. No acute fracture. Soft tissues: Unremarkable. Other findings: Motion artifact degrades images IMPRESSION: 1. No evidence of pulmonary embolus to the segmental level. 2. No aneurysm of the aorta. 3. No dissection of the aorta. 4. Multiple gallstones in the gallbladder. Thank you for allowing us to participate in the care of your patient. Dictated and Authenticated by: Dominick Dodd MD Lab Data Lab results reviewed: Yes I reviewed the patient's lab results. Labs: Laboratory Tests Range/Units 04/07/22 04/07/22 04/07/22 12:26 12:26 12:30 WBC (4.4-10.8) 10^3/uL 9.57 RBC (3.93-5.22) 10^6/uL 5.18 Hgb (11.2-15.7) g/dL 15.3 Hct (36.0-46.0) % 47.9 H MCV (80-95) fL 93 MCH (27.0-33.0) pg 29.5 MCHC (32.0-36.0) % 31.9 L RDW (11.7-14.6) % 12.3 Plt Count (130-400) 10^3/uL 307 MPV (8.0-11.0) fL 8.7 Immature Gran % 0.3 Neutrophils % 54.4 Lymphocytes % 38.9 Monocytes % 4.3 Eosinophils % 1.5 Basophils % 0.6 Nucleated RBC % (0.0-0.3) % 0.0 Absolute Neutrophils (1.2-6.7) 10^3/uL 5.21 Absolute Lymphocytes (1.2-3.4) 10^3/uL 3.72 H Absolute Monocytes (0.1-0.8) 10^3/uL 0.41 Absolute Eosinophils (0.0-0.7) 10^3/uL 0.14 Absolute Basophils (0.0-0.2) 10^3/uL 0.06 Sodium (136-145) mmol/L 143 Potassium (3.5-5.1) mmol/L 3.0 L Chloride (98-107) mmol/L 105 Carbon Dioxide (21.0-32.0) mmol/L 31.6 Anion Gap (3-11) mmol/L 6.4 BUN (7-18) mg/dL 15 Creatinine (0.55-1.02) mg/dL 0.8 Est GFR (CKD-EPI 2020) (mL/min/1.73m2) 95.46 Glucose (74-106) mg/dL 100 Calcium (8.5-10.1) mg/dL 9.0 Total Bilirubin (0.2-1.0) mg/dL 0.4 AST (15-37) U/L 18 ALT (14-59) U/L 31 Alkaline Phosphatase (46-116) U/L 121 H Total Protein (6.4-8.2) g/dL 8.0 Albumin (3.4-5.0) g/dL 3.8 COVID-19 Source Nasopharynx SARS-CoV-2 (PCR) (Negative) Negative Influenza Type A (PCR) (Negative) Negative Influenza Type B (PCR) (Negative) Negative RSV (PCR) (Negative) Positive A* HPI General Mode of arrival: ambulatory . Date/Time Provider Initiated Documentation: 04/07/22 12:01 . Limitations to Documentation: no limitations . Information obtained by: patient, RN notes reviewed and old records reviewed . HPI Narrative: 42-year-old female presents to the ER with chief complaint shortness of breath, hemoptysis and wheezing after being diagnosed with influenza approximately 1 week ago. Patient was seen here in the emergency department on the first and was seen in [facility] urgent care couple days and thereafter. Patient reports she was diagnosed with pneumonia received a chest x-ray and was placed on doxycycline which she is currently still taking. She reports that she woke up this morning with increased shortness of breath with exertion. Denies any fe fidel chills denies any chest pain or swelling in her legs. She does have some expiratory Wheezes which are scattered throughout on auscultation. She is satting 93% on room air. She has been using albuterol inhaler with a spacer which she reports did not work this morning. Past medical history include hypertension, polycystic ovarian disease, obesity, asthma, hyperlipidemia, anxiety. Related Data Home Medications Medication Instructions Recorded Confirmed acyclovir 400 mg tablet 400 mg PO BID #60 tab-caps 07/08/17 04/07/22 sertraline 100 mg tablet 100 mg PO DAILY 04/25/18 04/07/22 buspirone 10 mg tablet 10 mg PO BID 04/21/20 04/07/22 omeprazole 20 mg capsule,delayed 20 mg PO DAILY 04/21/20 04/07/22 release albuterol sulfate 90 mcg/actuation 2 puff inhalation Q6H PRN 04/13/21 04/07/22 aerosol inhaler (ProAir HFA) hydroxyzine HCl 25 mg tablet 25 mg PO QHS PRN 04/13/21 04/07/22 inhalational spacing device (Space #1 ea 04/13/21 04/07/22 Chamber) loratadine 10 mg capsule (Claritin 10 mg PO DAILY 04/13/21 04/07/22 Liqui-Gel) topiramate 50 mg tablet (Topamax) 50 mg PO BID 04/13/21 04/07/22 doxycycline hyclate 100 mg capsule 1 cap PO BID 04/07/22 04/07/22 prednisone 20 mg tablet 60 mg PO DAILY Viral URI 9 days 04/07/22 #17 tabs Previous Rx's Medication Instructions Recorded acyclovir 400 mg tablet 400 mg PO BID #60 tab-caps 07/08/17 prednisone 20 mg tablet 60 mg PO DAILY Viral URI 9 days 04/07/22 #17 tabs Allergies Allergy/AdvReac Type Severity Reaction Status Date / Time levofloxacin [From Levaquin] Allergy Intermediate Hives Verified 04/07/22 12:08 amoxicillin Allergy Unverified 04/07/22 12:08 General Stated Complaint: RespSymp FALGUNI: 3 Review of Systems All systems reviewed & are unremarkable except as noted in HPI and below Cardiovascular Cardiovascular: Denies chest pain, Denies syncope, Denies leg edema, Reports d yspnea and Reports dyspnea on exertion Respiratory Respiratory: Reports as per HPI, Reports cough, Reports hemoptysis, Reports excessive phlegm production (Reports milky white), Reports dyspnea and Reports dyspnea on exertion Gastrointestinal Gastrointestinal: Denies abdominal pain, Denies hematochezia, Denies diarrhea, Reports nausea and Denies vomiting Neurologic Neurologic: Denies syncope PFSH All Active Problems (Updated 04/07/22 @ 14:05 by Evelyn Santiago NP) Influenza B (Acute) Respiratory syncytial virus (RSV) infection (Acute) Asthma (Chronic) Onychomycosis of toenail (Acute) Obesity (Chronic) Headache (Acute) Hypomagnesemia (Acute) Facial flushing (Acute) Night sweats (Acute) Caregiver role strain (Acute) Anxiety (Chronic) Unresolved grief (Acute) Acute post-traumatic stress disorder (Acute) Varicose veins of right lower extremity (Acute) Genital herpes (Acute) Dyspepsia (Acute) Dizziness (Acute) Hyperlipidemia (Acute) Restrictive lung disease (Acute) Fracture of greater tuberosity of humerus (Acute 04/21/20) Oligomenorrhea, unspecified (Acute) Miscarriage (Acute) Threatened miscarriage in early (Acute) Medical History HTN (hypertension) Lower back pain Polycystic disease, ovaries Surgical History H/O section Social History Smoking/Tobacco Use Status: Never Smoking risk assessment performed?: Yes Alcohol Intake: current Alcohol Intake frequency: holidays/special occasions only Drug use: Never Substance use type: does not use Current gender identity: female Do you feel safe at home: Yes Do you feel safe in your relationship?: Yes Exam Narrative Exam Narrative: Constitutional: Alert and oriented x3. Appears stated age. Obese body habitus. Head: Normocephalic, no trauma. Eyes: Pupils PERRL, Red reflex noted, EOM's intact. Eyelids symmetrical without lesions, discharge, or swelling. ENT: Bilateral TM's WNL, External ear normal to inspection, no mastoid TTP, swelling, or erythema, Nasal turbinates WNL, no nasal discharge. Normal dentition, Posterior pharynx WNL, no exudate. Chest: RRR, Normal S1, S2, distal pulses intact. Resp: Scattered inspiratory and expiratory wheezes bilaterally. Abdomen: Soft, nontender, non-distended, Normoactive bowel sounds all 4 quads. Musculoskeletal: Normal gait, 5/5 strength to all four extremities. Skin: No suspicious rashes or lesions. Capillary refill less than 2 sec. Neurologic: Cranial nerves II-XII intact. Alert and oriented x 3. Motor: No deficits noted. Hematologic/Lymphatic: No ecchymosis, no lymphadenopathy. Course Vital Signs Vital signs: Vital Signs Temperature 36.5 C 04/07/22 12:03 Pulse 90 04/07/22 12:03 Respiratory Rate 17 04/07/22 12:03 Blood Pressure 133/81 04/07/22 12:03 Pulse Oximetry 93 04/07/22 12:03 Temperature 36.5 C 04/07/22 12:03 Temperature Source Temporal Artery Scan 04/07/22 12:03 Pulse 90 04/07/22 12:03 Respiratory Rate 17 04/07/22 12:03 Respiratory Effort Short of Breath 04/07/22 12:04 Respiratory Depth Normal 04/07/22 12:04 Blood Pressure 133/81 04/07/22 12:03 Blood Pressure Position Sitting 04/07/22 12:03 Pulse Oximetry 93 04/07/22 12:03 Oxygen Delivery Method Room Air 04/07/22 12:03 Oxygen Flow Rate 0 04/07/22 12:03 Pain Level 0 04/07/22 12:03 PAWSS Have you Been Recently Intoxicated or Drunk Within the Last 30 days?: No Have you Ever Experienced Previous Episodes of Alcohol Withdrawal?: No Have you ever Experienced Withdrawal Seizures?: No Have you ever Experienced Delirium Tremens(DT)s?: No Have you ever undergone Alcohol Rehabilitation Treatment (i.e, inpt ot outpatient treatment programs)?: No Have you ever Experienced Blackouts?: No Have you ever Combined Alcohol with other Downers within the last 90 days?: No Have you ever Combined Alcohol with any other Substance of Abuse during the last 90 days?: No Result: 0
[2022-04-07 12:34] VITALS: RESP 4; O2SAT 94
[2022-04-07] MEDS: Albuterol/Ipratropium 3 ML UPD VIAL UPD (12:34)
[2022-04-07 12:36] LABS: Abs Immature Grans 0.03 10^3/uL (0.0-0.06); Absolute Basophil Count 0.06 10^3/uL (0.0-0.2); Absolute Eosinophil Count 0.14 10^3/uL (0.0-0.7); Absolute Lymphocyte Count 3.72 10^3/uL (1.2-3.4); Absolute Monocyte Count 0.41 10^3/uL (0.1-0.8); Absolute Neutrophil Count 5.21 10^3/uL (1.2-6.7); Basophils % 0.6; Eosinophils % 1.5; HCT 47.9 % (36.0-46.0); HGB 15.3 g/dL (11.2-15.7); Immature Grans % 0.3; Lymphocytes % 38.9; MCH 29.5 pg (27.0-33.0); MCHC 31.9 % (32.0-36.0); MCV 93 fL (80-95); MPV 8.7 fL (8.0-11.0); Monocytes % 4.3; Neutrophils % 54.4; Platelet Count 307 10^3/uL (130-400); RBC 5.18 10^6/uL (3.93-5.22); RDW 12.3 % (11.7-14.6); RDW-SD 42.5 fL; WBC 9.57 10^3/uL (4.4-10.8)
[2022-04-07 12:51] LABS: ALT 31 U/L (14-59); AST 18 U/L (15-37); Albumin 3.8 g/dL (3.4-5.0); Alkaline Phosphatase 121 U/L (46-116); Anion Gap 6.4 mmol/L (3-11); BUN 15 mg/dL (7-18); Bilirubin, Total 0.4 mg/dL (0.2-1.0); CO2 31.6 mmol/L (21.0-32.0); CREATININE 0.8 mg/dL (0.55-1.02); Chloride 105 mmol/L (98-107); Estimated GFR 95.46 (mL/min/1.73m2); Glucose 100 mg/dL (74-106); Sodium 143 mmol/L (136-145)
[2022-04-07] MEDS: Potassium Chloride 20 MEQ TABCR 40 MEQ PO (13:14)
[2022-04-07 13:15] LABS: COVID-19 PCR Negative (Negative); Influenza A PCR Negative (Negative); Influenza B PCR Negative (Negative)
[2022-04-07] MEDS: Omnipaque 350 MG/ML 100 ML BTL IJ (13:15)
[2022-04-07] MEDS: Normal Saline Flush 10 ML SYR IVP (13:16)
[2022-04-07 13:18] LABS: Source Nasopharynx
[2022-04-07 13:22] LABS: RSV PCR Positive (Negative)
--- NOTE | 2022-04-07 13:55 | DI.VRAD_ITS ---
PROCEDURE INFORMATION: Exam: CTA Chest With Contrast Exam date and time: 04/07/2022 1:18 PM Age: 42 years old Clinical indication: Shortness of breath and other: Hemoptysis TECHNIQUE: Imaging protocol: Computed tomographic angiography of the chest with contrast. 3D rendering (Not supervised by radiologist): MIP and/or 3D reconstructed images were created by the technologist. COMPARISON: CT CHEST HIGH RESOLUTION 08/22/2021 2:02 PM FINDINGS: Pulmonary arteries: No evidence of pulmonary embolus to the segmental level. Aorta: No aneurysm of the aorta. No dissection of the aorta. Lungs: Unremarkable. No consolidation. No masses. Pleural spaces: Unremarkable. No pneumothorax. No pleural effusion. Heart: Unremarkable. No cardiomegaly. No pericardial effusion. Lymph nodes: Unremarkable. No enlarged lymph nodes. Gallbladder and bile ducts: Multiple gallstones in the gallbladder. Bones/joints: Unremarkable. No acute fracture. Soft tissues: Unremarkable. Other findings: Motion artifact degrades images IMPRESSION: 1. No evidence of pulmonary embolus to the segmental level. 2. No aneurysm of the aorta. 3. No dissection of the aorta. 4. Multiple gallstones in the gallbladder. Dictated and Authenticated by: Dominick Dodd MD. Ordering:CHON Rivas MD
[2022-04-07] MEDS: predniSONE 20 MG TAB 60 MG PO (14:15)
== END 2022-04-07 14:16 | disposition home or self-care (01) ==
PROVIDERS: Emergency Provider Registered Nurse Emergency; PCP Nurse Practitioner Family
DX: J98.8 Other specified respiratory disorders (principal); B97.4 Respiratory syncytial virus as the cause of diseases classified elsewhere; J18.9 Pneumonia, unspecified organism; I10 Essential (primary) hypertension; E66.9 Obesity, unspecified; Z20.822 Contact with and (suspected) exposure to COVID-19
CPT/HCPCS: 36415; 71275; 80053; 81025; 87637; 94640; 99285; 85025; 99284; J3490; J7512; J7620

== ENCOUNTER 2022-10-01 13:28 | Outpatient (REF) | payer MEDICAID, SELFPAY ==
[2022-10-01 15:54] LABS: Anion Gap 8.5 mmol/L (3-11); BUN 10 mg/dL (7-18); CO2 27.5 mmol/L (21.0-32.0); CREATININE 0.6 mg/dL (0.55-1.02); Calcium 8.8 mg/dL (8.5-10.1); Calculated LDL 190 mg/dL (<100); Chloride 106 mmol/L (98-107); Cholesterol 275 mg/dL (<200); Glucose 100 mg/dL (74-106); HDL Cholesterol 55 mg/dL (40-60); Potassium 4.3 mmol/L (3.5-5.1); Sodium 142 mmol/L (136-145); Triglyceride 153 mg/dL (<150); Vitamin B12 267 pg/mL (193-986)
[2022-10-01 16:09] LABS: Magnesium 1.8 mg/dL (1.8-2.4)
== END 2022-10-01 13:29 | disposition home or self-care (01) ==
LOC: NCHCN 13:28
PROVIDERS: PCP Nurse Practitioner Family; Visit Provider Nurse Practitioner Family
DX: M25.511 Pain in right shoulder (principal); M25.512 Pain in left shoulder; M54.50 Low back pain, unspecified; J30.9 Allergic rhinitis, unspecified; R78.5 Finding of other psychotropic drug in blood; I10 Essential (primary) hypertension; K30 Functional dyspepsia; A60.00 Herpesviral infection of urogenital system, unspecified; F41.8 Other specified anxiety disorders
CPT/HCPCS: 80048; 80061; 82607; 83735

== ENCOUNTER → 2023-03-06 13:14 | Outpatient (CLI) | payer MEDICAID, SELFPAY ==
--- NOTE | 2023-03-06 | DI.RAD_ITS ---
Exam(s) XR CHEST 2V PA LATERAL EXAM: XR CHEST 2V PA LATERAL CLINICAL HISTORY: J06.9 Acute upper respiratory infection unspecified. TECHNIQUE: 2D digital imaging was performed. COMPARISON: CR,XR XR CHEST 2V PA LATERAL from 04/05/2022 FINDINGS: 2 views: Heart size is normal. The mediastinum is not widened. Lungs are clear. No infiltrates nor pleural effusions. IMPRESSION: No acute pulmonary findings. DATA REPOSITORY: RADIATION DOSE DELIVERED:
== END ==
PROVIDERS: PCP Nurse Practitioner Family; Visit Provider Physician Assistant Medical
DX: J06.9 Acute upper respiratory infection, unspecified (principal)
CPT/HCPCS: 71046

== ENCOUNTER 2023-04-15 15:18 | Outpatient (REF) | payer MEDICAID, SELFPAY ==
--- NOTE | 2023-04-15 14:00 | PAPFT_PTH ---
PATIENT: Anna Damon LOC: [facility]#:[id number] AGE/SX: 43/F ROOM: RE04/15/[address]: Ene Cuevas : 1980 BED: DIS: 04/15/2023 SPEC #: [id number] RECD: 04/16/23 13:09 STATUS: MANAV TREVINO #: [id number] TARYN: 04/15/23 14:[address]: Ene Cuevas DEPT: [facility] Cytology RECD BY: Nahomi Lamar Tissues: 1 - CX/ENDOCX FOR PAP SMEARS Procedures: PAP THIN PREP/[facility] Screening HPV DNA PROBE Comments: [id number] (CHLAMYDIA/GC)
[2023-04-15 21:18] LABS: Hemoglobin A1C 5.2 % (<5.7)
[2023-04-15 21:31] LABS: Vitamin D 25 Total 25.9 ng/mL (30-100)
[2023-04-15 21:37] LABS: ALT 28 U/L (14-59); AST 26 U/L (15-37); Albumin 3.8 g/dL (3.4-5.0); Alkaline Phosphatase 108 U/L (46-116); Anion Gap 8.9 mmol/L (3-11); BUN 16 mg/dL (7-18); Bilirubin, Total 0.3 mg/dL (0.2-1.0); CO2 26.1 mmol/L (21.0-32.0); CREATININE 0.7 mg/dL (0.55-1.02); Calcium 8.9 mg/dL (8.5-10.1); Calculated LDL 173 mg/dL (<100); Chloride 105 mmol/L (98-107); Cholesterol 297 mg/dL (<200); Estimated GFR 111.36 (mL/min/1.73m2); Glucose 98 mg/dL (74-106); HDL Cholesterol 54 mg/dL (40-60); Magnesium 1.9 mg/dL (1.8-2.4); Potassium 3.7 mmol/L (3.5-5.1); Sodium 140 mmol/L (136-145); TSH 2.01 uIU/mL (0.36-3.74); Total Protein 7.7 g/dL (6.4-8.2); Triglyceride 352 mg/dL (<150); Vitamin B12 270 pg/mL (193-986)
[2023-04-15 21:53] LABS: FREE T4 0.96 ng/dL (0.76-1.46); GGT 27 U/L (5-55)
[2023-04-17 12:34] LABS: Chlamydia Result Negative (Negative); GC Result Negative (Negative)
== END 2023-04-15 15:19 | disposition home or self-care (01) ==
LOC: NCHCN 15:18
PROVIDERS: PCP Nurse Practitioner Family; Visit Provider Nurse Practitioner Family
DX: I10 Essential (primary) hypertension (principal); R74.8 Abnormal levels of other serum enzymes; Z13.1 Encounter for screening for diabetes mellitus; K30 Functional dyspepsia
CPT/HCPCS: 80053; 80061; 82306; 87491; 87591; 88142; 82607; 82977; 83036; 83735; 84439; 84443; 87624

== ENCOUNTER → 2023-04-22 01:58 | Outpatient (CLI) | payer MEDICAID, SELFPAY ==
--- NOTE | 2023-04-22 | DI.MAMMO_ITS ---
Exam(s) MAMMO SCREENING EXAM: MAMMO SCREENING CLINICAL HISTORY: SCREENING MAMMO FOR BREAST CANCER Z12.31 TECHNIQUE: Mammograms were interpreted according to the usual protocol including computer analysis w [employer] CAD system, tomosynthesis and C-view imaging. COMPARISON: No exams were available for comparison. Baseline examination FINDINGS: The breasts are composed of scattered fibroglandular densities, Breast Density category B. No suspicious masses or suspicious microcalcifications are seen. No skin thickening or abnormal axillary lymph nodes are seen. IMPRESSION: BI-RADS Category 1, Negative mammogram Yearly screening mammography is recommended. Breast Density - Category B, scattered fibroglandular densities. A negative radiographic report should not delay biopsy if a dominant or clinically suspicious mass is present. Up to ten percent of cancers are not identified on mammography. A negative report may reinforce clinical impression. Adenosis and dense breasts may obscure an underlying neoplasm. False positive reports average 6 to 10%. Patient will receive a letter notifying them of these results.
== END ==
PROVIDERS: PCP Nurse Practitioner Family; Visit Provider Nurse Practitioner Family
DX: Z12.31 Encounter for screening mammogram for malignant neoplasm of breast (principal)
CPT/HCPCS: 77063; 77067

== ENCOUNTER 2024-04-14 14:02 | Outpatient (REF) | payer MEDICAID, SELFPAY ==
[2024-04-14 16:30] LABS: Hemoglobin A1C 5.3 % (<5.7)
[2024-04-14 16:41] LABS: Bilirubin Negative (Negative); Blood Large (Negative); Clarity Sl Cloudy (Clear); Glucose Negative (Negative); Ketones Negative (Negative); Leukocyte Esterase Negative (Negative); Nitrite Negative (Negative); Urobilinogen 0.2 mg/dL (Up to 0.2); pH 8.5 (5-8)
[2024-04-14 16:49] LABS: Bacteria Rare HPF (Negative); C & S Indicated? No; Casts Negative LPF (Negative); Crystals Negative HPF (Negative); Epithelial Cells Negative HPF (Negative); Mucus Trace (Negative); Other Cells Negative (Negative); RBC >50 HPF (0-2); WBC Negative HPF (0-5)
[2024-04-14 17:46] LABS: ALT 20 U/L (14-59); AST 13 U/L (15-37); Albumin 3.9 g/dL (3.4-5.0); Alkaline Phosphatase 97 U/L (46-116); Anion Gap 6.5 mmol/L (3-11); BUN 15 mg/dL (7-18); Bilirubin, Total 0.42 mg/dL (0.2-1.0); CO2 28.5 mmol/L (21.0-32.0); CREATININE 0.7 mg/dL (0.55-1.02); Calcium 9.1 mg/dL (8.5-10.1); Calculated LDL 173 mg/dL (<100); Chloride 107 mmol/L (98-107); Cholesterol 265 mg/dL (<200); Estimated GFR 110.67 (mL/min/1.73m2); Glucose 93 mg/dL (74-106); HDL Cholesterol 63 mg/dL (40-60); Potassium 4.6 mmol/L (3.5-5.1); Sodium 142 mmol/L (136-145); TSH (W/Ref FT4) 1.33 uIU/mL (0.36-3.74); Total Protein 7.2 g/dL (6.4-8.2); Triglyceride 147 mg/dL (<150); Vitamin B12 271 pg/mL (193-986); Vitamin D 25 Total 32.2 ng/mL (30-100)
[2024-04-14 17:46] LABS: COMMENT (LAB VIEW ONLY) 124.22 mg/dL; Microalb ug/mg Crea 52.7 ug/mg Cr
[2024-04-14 17:47] LABS: Folate > 20.0 ng/mL (8.6-20.0)
[2024-04-14 17:54] LABS: GGT 35 U/L (5-55)
== END 2024-04-14 14:03 | disposition home or self-care (01) ==
LOC: NCHCN 14:02
PROVIDERS: PCP Nurse Practitioner Family; Visit Provider Nurse Practitioner Family
DX: I10 Essential (primary) hypertension (principal); R74.8 Abnormal levels of other serum enzymes; K30 Functional dyspepsia; R20.2 Paresthesia of skin; E66.9 Obesity, unspecified
CPT/HCPCS: 80053; 80061; 82306; 81003; 81015; 82043; 82570; 82607; 82746; 82977; 83036; 83735; 84443

== ENCOUNTER 2024-05-08 14:15 | Outpatient (REF) | payer MEDICAID, SELFPAY ==
[2024-05-08 16:10] LABS: COMMENT (LAB VIEW ONLY) 72.12 mg/dL
== END 2024-05-08 14:16 | disposition home or self-care (01) ==
LOC: NCHCN 14:15
PROVIDERS: PCP Nurse Practitioner Family; Visit Provider Nurse Practitioner Family
DX: I10 Essential (primary) hypertension (principal)
CPT/HCPCS: 82043; 82570

== ENCOUNTER 2025-02-17 23:26 | Emergency (ER) | payer MEDICAID, SELFPAY ==
[2025-02-17 23:29] VITALS: BP 147/92; PULSE 94; RESP 18; TEMP 36.6; O2SAT 97
--- NOTE | 2025-02-17 23:49 | W.ED.GENAD ---
Discharge Plan Disposition Patient Disposition: Home Condition: Good Discharge Details Clinical Impression: Kidney stone, Acute hypokalemia Primary Care Provider: Ene Cuevas ED Provider: Lexy Vieira Home Meds and New Rx's Prescriptions: New tamsulosin 0.4 mg capsule 0.4 mg PO DAILY Qty: 14 0RF oxycodone 5 mg capsule 5 mg PO Q8H PRNQty: 6 0RF ondansetron 4 mg tablet,disintegrating 4 mg PO Q8H PRNQty: 10 0RF Continued hydroxyzine HCl 25 mg tablet 25 mg PO QHS PRN Claritin Liqui-Gel 10 mg capsule 10 mg PO DAILY (DME) Space Chamber Spacer See Rx Instructions .ROUTE .MEDSUPPLY Qty: 1 Rx Instructions: As directed albuterol sulfate [ProAir HFA] 90 mcg/actuation HFA aerosol inhaler 2 puff inhalation Q6H PRN topiramate [Topamax] 50 mg tablet 50 mg PO BID buspirone 10 mg tablet 10 mg PO BID Patient Comments: TAKE 1 TABLET BY MOUTH TWICE DAILY omeprazole 20 mg capsule,delayed release(DR/EC) 20 mg PO DAILY Patient Comments: TAKE 1 CAPSULE BY MOUTH ONCE DAILY Discharge Instructions Instructions: Hypokalemia, Kidney Stone, Adult ED Additional Instructions: Tamsulosin at bedtime. Tylenol and ibuprofen over the counter for pain; follow the instructions on the bottle. Can take oxycodone 5mg up to every 8 hours as needed for breakthrough pain. Zofran up to every 8 hours as needed for vomiting. Strain all urine. Followup with urology- they will call you to schedule an appointment. If you do not hear from them, please call [phone] to schedule an appointment. Call your primary care doctor in the morning to schedule an appointment for within 48 hours to followup on your visit here. At that visit please discuss your potassium level which is low here today- this may be from your vomiting but can cause life threatening cardiac arythmias if it gets too low. Return to the emergency department for new or worsening symptoms including fever, inability to urinate, pain not controled by home medications, or if you have any other concerns. Stand Alone Forms: Portal Information HPI General Mode of arrival: ambulatory. Date/Time Provider Initiated Documentation: 02/17/25 23:27. Limitations to Documentation: no limitations. Information obtained by: patient. HPI Narrative: 45yo F presenting with acute left flank pain wrapping around to her left mid abdomen that started around 7pm today. Has been constant and worsening since onset, now severe. Associated nausea and vomiting once then pain became severe. Nonbloody nonbilious. No lower abdominal pain or groin pain. Has never had pain like this before. Tried tylenol and ibuprofen at home with minimal improvement. No fevers, chills, rash, dysuria, hematuria, numbness/tingling, back pain, chest pain, shortness of breath, or other concerns. Related Data Home Medications Medication Instructions Recorded Confirmed buspirone 10 mg tablet 10 mg PO BID 04/21/20 02/17/25 omeprazole 20 mg capsule,delayed 20 mg PO DAILY 04/21/20 02/17/25 release albuterol sulfate 90 mcg/actuation 2 puff inhalation Q6H PRN 04/13/21 02/17/25 aerosol inhaler (ProAir HFA) hydroxyzine HCl 25 mg tablet 25 mg PO QHS PRN 04/13/21 02/17/25 inhalational spacing device (Space #1 ea 04/13/21 04/07/22 Chamber) loratadine 10 mg capsule (Claritin 10 mg PO DAILY 04/13/21 02/17/25 Liqui-Gel) topiramate 50 mg tablet (Topamax) 50 mg PO BID 04/13/21 02/17/25 ondansetron 4 mg disintegrating 4 mg PO Q8H PRN #10 tabs 02/18/25 tablet oxycodone 5 mg capsule 5 mg PO Q8H PRN #6 caps 02/18/25 tamsulosin 0.4 mg capsule 0.4 mg PO DAILY #14 caps 02/18/25 Previous Rx's Medication Instructions Recorded ondansetron 4 mg disintegrating 4 mg PO Q8H PRN #10 tabs 02/18/25 tablet oxycodone 5 mg capsule 5 mg PO Q8H PRN #6 caps 02/18/25 tamsulosin 0.4 mg capsule 0.4 mg PO DAILY #14 caps 02/18/25 Allergies Allergy/AdvReac Type Severity Reaction Status Date / Time levofloxacin (From Levaquin) Allergy Intermediate Hives Verified 02/17/25 23:32 amoxicillin AdvReac Mild GI Bleeding Verified 02/17/25 23:32 General Stated Complaint: Abd Prob FALGUNI: 3 Review of Systems Narrative: see HPI Exam Narrative Exam Narrative: General: Alert, well appearing, well nourished, appears to be in pain Head: Normocephalic, atraumatic Neck: Trachea midline, Neck supple. ENT: MMM. Cardiac: RRR, no murmurs appreciated Resp: No respiratory distress. CTAB. Abd: Soft, non-distended, nontender : No suprapubic tenderness. No CVA tenderness. Extremities: No deformities. No peripheral edema. Neurologic: GCS 15. Moves all extremities freely against gravity Course Vital Signs Vital signs: Vital Signs Temperature 36.6 C 02/17/25 23:29 Pulse 94 H 02/17/25 23:29 Respiratory Rate 18 02/17/25 23:29 Blood Pressure 147/92 H 02/17/25 23:29 Pulse Oximetry 97 02/17/25 23:29 Temperature 36.6 C 02/17/25 23:29 Pulse 94 H 02/17/25 23:29 Respiratory Rate 18 02/17/25 23:29 Blood Pressure 147/92 H 02/17/25 23:29 Pulse Oximetry 97 02/17/25 23:29 Pain Level 10 02/17/25 23:29 Medical Decision Making 45yo F presenting with acute left mid flank pain wrapping around to her left mid abdomen that started around 7pm today with associated N/V once pain became severe. Slightly hypertensive and tachycardia on arrival (suspect 2/t pain), vital signs otherwise reassuring. No abdominal tenderness on exam including no RUQ tenderness, negative sierra's, no CVA or suprapubic tenderness. No lower abdominal pain or tenderness to suggest pelvic/ovarian/uterine pathology such as torsion. Not suggestive of aortic dissection. Will treat with IV zofran and toradol while awaiting results of workup; had tylenol prior to arrival. -Labs reviewed as below, CBC reassuring with no leuckocytosis or anemia, CMP with hypokalemia to 3.1 in the setting of vomiting (IV and oral replacement given, EKG ordered and SR without hypokalemic changes), Mg normal, lactate normal, UA with hematuria and not infected. negative. -On reassessment she remains in significant pain; added IV morphine with good effect. -CT abd pelvis independently reviewed; no obstruction or free fluid on my view, radiology read with 6mm left uretrolithiasis with moderate hydronephrosis. On reassessment patient improved though still moderate in intensity. Will add PO oxycodone. PO challenged and tolerated well. Repeat VS reassuring. Will discharge to outpatient urology followup; dced with urine strainer with prescription for tamulosin, oxycodone for breaththrough pain, zofran. Pt advised of incidental finding of cholelithiasis. Advised to followup with PCP regarding hypokalemia. Dced home during EMR downtime; discharge instructions and return precautions were reviewed with patient who verbalized understanding. All questions were answered and she is in full agreement with the plan. IMPRESSION: 1. Obstructive left ureterolithiasis with resultant moderate left hydronephrosis and perinephric fat stranding. 2. No other acute intra-abdominal findings. 3. Normal appendix. 4. Cholelithiasis. No findings to suggest choledocholithiasis or acute cholecystitis. 5. Diverticulosis. No acute diverticulitis. Lab Data Lab results reviewed: Yes I reviewed the patient's lab results. Labs: Laboratory Tests Range/Units 02/18/25 00:01 WBC (4.4-10.8) 10^3/uL 7.68 RBC (3.93-5.22) 10^6/uL 4.69 Hgb (11.2-15.7) g/dL 14.0 Hct (36.0-46.0) % 42.6 MCV (80-95) fL 91 MCH (27.0-33.0) pg 29.9 MCHC (32.0-36.0) % 32.9 RDW (11.7-14.6) % 12.1 Plt Count (130-400) 10^3/uL 269 MPV (8.0-11.0) fL 8.7 Immature Gran % % 0.4 Neutrophils % % 62.2 Lymphocytes % % 29.4 Monocytes % % 5.1 Eosinophils % % 2.1 Basophils % % 0.8 Nucleated RBC % (0.0-0.3) % 0.0 Absolute Neutrophils (1.2-6.7) 10^3/uL 4.78 Absolute Lymphocytes (1.2-3.4) 10^3/uL 2.26 Absolute Monocytes (0.1-0.8) 10^3/uL 0.39 Absolute Eosinophils (0.0-0.7) 10^3/uL 0.16 Absolute Basophils (0.0-0.2) 10^3/uL 0.06 VBG Lactate (<or=2.0) mmol/L 1.9 Sodium (136-145) mmol/L 141 Potassium (3.5-5.1) mmol/L 3.1 L Chloride (98-107) mmol/L 108 H Carbon Dioxide (20.0-31.0) mmol/L 24.0 Anion Gap (3-11) mmol/L 9 BUN (9-23) mg/dL 12 Creatinine (0.55-1.02) mg/dL 0.8 Est GFR (CKD-EPI 2020) (mL/min/1.73m2) 84.32 Glucose (74-106) mg/dL 132 H Calcium (8.3-10.6) mg/dL 9.4 Magnesium (1.6-2.6) mg/dL 1.8 Total Bilirubin (0.2-1.2) mg/dL 0.20 AST (<34) U/L 19 ALT (10-49) U/L 15 Alkaline Phosphatase (46-116) U/L 88 Total Protein (5.7-8.2) g/dL 7.3 Albumin (3.4-5.0) g/dL 4.5 Urine Color (Yellow) Yellow Urine Clarity (Clear) Cloudy Urine pH (5-8) 7.0 Ur Specific [place] (1.005-1.025) 1.020 Urine Protein (Neg-Trace) mg/dL Negative Urine Ketones (Negative) mg/dL Negative Urine Blood (Negative) Moderate H Urine Nitrite (Negative) Negative Urine Bilirubin (Negative) Negative Urine Urobilinogen (Up to 0.2) mg/dL 0.2 Ur Leukocyte Esterase (Negative) Negative Urine RBC (0-2) HPF 3-5 H Urine WBC (0-5) HPF 0-2 Ur Epithelial Cells (Negative) HPF Few Urine Crystals (Negative) HPF Moderate Amorphous Urine Bacteria (Negative) HPF Few Urine Casts (Negative) LPF Negative Urine Mucus (Negative) Trace Ur Culture Indicated? No Urine Glucose (Negative) mg/dL Negative PFSH All Active Problems (Updated 11/20/25 @ 01:51 by Lexy Vieira MD) Acute hypokalemia (Acute) Kidney stone (Chronic) Asthma (Chronic) Onychomycosis of toenail (Acute) Obesity (Chronic) Headache (Acute) Hypomagnesemia (Acute) Facial flushing (Acute) Night sweats (Acute) Caregiver role strain (Acute) Anxiety (Chronic) Unresolved grief (Acute) Acute post-traumatic stress disorder (Acute) Varicose veins of right lower extremity (Acute) Genital herpes (Acute) Dyspepsia (Acute) Dizziness (Acute) Hyperlipidemia (Acute) Restrictive lung disease (Acute) Fracture of greater tuberosity of humerus (Acute 04/21/20) Oligomenorrhea, unspecified (Acute) Miscarriage (Acute) Threatened miscarriage in early (Acute) Medical History HTN (hypertension) Lower back pain Polycystic disease, ovaries Surgical History H/O section Social History Smoking/Tobacco Use Status: Never Smoking risk assessment performed?: Yes Alcohol Intake: current Alcohol Intake frequency: holidays/special occasions only Drug use: Never Substance use type: does not use Current gender identity: female Do you feel safe at home: Yes Do you feel safe in your relationship?: Yes PAWSS Have you Been Recently Intoxicated or Drunk Within the Last 30 days?: No Have you Ever Experienced Previous Episodes of Alcohol Withdrawal?: No Have you ever Experienced Withdrawal Seizures?: No Have you ever Experienced Delirium Tremens(DT)s?: No Have you ever undergone Alcohol Rehabilitation Treatment (i.e, inpt ot outpatient treatment programs)?: No Have you ever Experienced Blackouts?: No Have you ever Combined Alcohol with other Downers within the last 90 days?: No Have you ever Combined Alcohol with any other Substance of Abuse during the last 90 days?: No Positive Blood Alcohol level on Presentation? [PCS.BAL]: No Evidence of Increased Autonomic Activity (i.e. HR>120, tremor, sweating, agitation, nausea)?: No Result: 0
[2025-02-18] MEDS: Ondansetron 4 MG/2 ML VIAL IVP (00:04)
[2025-02-18] MEDS: Ketorolac 15 MG/ML VIAL IVP (00:04)
[2025-02-18 00:11] LABS: Abs Immature Grans 0.03 10^3/uL (0.0-0.06); HCT 42.6 % (36.0-46.0); HGB 14.0 g/dL (11.2-15.7); Immature Grans % 0.4 %; MCH 29.9 pg (27.0-33.0); MCHC 32.9 % (32.0-36.0); MCV 91 fL (80-95); MPV 8.7 fL (8.0-11.0); Platelet Count 269 10^3/uL (130-400); RBC 4.69 10^6/uL (3.93-5.22); RDW 12.1 % (11.7-14.6); RDW-SD 39.8 fL; WBC 7.68 10^3/uL (4.4-10.8)
[2025-02-18 00:18] LABS: Glucose Negative (Negative)
[2025-02-18 00:23] LABS: WBC 0-2 HPF (0-5)
[2025-02-18 00:24] LABS: C & S Indicated? No
[2025-02-18 00:30] LABS: Magnesium 1.8 mg/dL (1.6-2.6)
--- NOTE | 2025-02-18 00:30 | RT.EKG_ITS ---
APPROVED REPORT Exam: Resting ECG Reason for Exam: hypokalemia Patient Location: E HR:89 bpm ECG Measurements Heart Rate 89 AXIS PA 215 P 39 QRSd 96 QRS -40 QT 358 T 8 QTc 435 Conclusion Sinus rhythm...normal P axis, V-rate 60- 99 limited interp 2/t artifact, within readable leads no ST segment or T wave abnormalities to suggest occlusive OK
[2025-02-18 00:31] LABS: ALT 15 U/L (10-49); AST 19 U/L (<34); Albumin 4.5 g/dL (3.4-5.0); Alkaline Phosphatase 88 U/L (46-116); Anion Gap 9 mmol/L (3-11); BUN 12 mg/dL (9-23); Bilirubin, Total 0.20 mg/dL (0.2-1.2); CO2 24.0 mmol/L (20.0-31.0); Calcium 9.4 mg/dL (8.3-10.6); Chloride 108 mmol/L (98-107); Glucose 132 mg/dL (74-106); Potassium 3.1 mmol/L (3.5-5.1); Sodium 141 mmol/L (136-145); Total Protein 7.3 g/dL (5.7-8.2)
[2025-02-18] MEDS: POTASSIUM CHLORIDE 20 MEQ/100 ML BAG 50 MEQ IV_INF (01:00)
--- NOTE | 2025-02-18 01:00 | RT.EKG_ITS ---
APPROVED REPORT Exam: Resting ECG Reason for Exam: [facility] Patient Location: E HR:81 bpm ECG Measurements Heart Rate 81 AXIS CA 182 P 26 QRSd 104 QRS -39 QT 378 T 9 QTc 439 Conclusion Sinus rhythm...normal P axis, V-rate 60- 99 Left axis deviation...QRS axis (-30,-90) no ST segment or T wave abnormalities to suggest occlusive ID
[2025-02-18 01:04] VITALS: PULSE 94; RESP 17
[2025-02-18 01:10] VITALS: PULSE 97; RESP 16
[2025-02-18 01:27] VITALS: PULSE 98; RESP 19
[2025-02-18] MEDS: Omnipaque 350 MG/ML 100 ML BTL IJ (01:27)
[2025-02-18] MEDS: Normal Saline - Diluent 50 ML VIAL IJ (01:27)
[2025-02-18] MEDS: Normal Saline Flush 10 ML SYR IVP (01:27)
--- NOTE | 2025-02-18 01:29 | DI.CT_ITS ---
Exam(s) CT ABDOMEN PELVIS W EXAM: CT ABDOMEN PELVIS W CLINICAL HISTORY: left flank pain. TECHNIQUE: Imaging Protocol: Axial computed tomography images with coronal and sagittal reformatted images were created and reviewed CONTRAST MATERIAL: Intravenous: Omnipaque 350 Contrast volume:100 ml Oral: yes no COMPARISON: CT CT CHEST PE CTA from 04/07/2022 FINDINGS: ABDOMEN and PELVIS: Lung Bases: No acute findings. Liver: Normal density. No suspicious mass. Gallbladder and biliary tract: Multiple calcified gallstones again noted. No wall thickening or pericholecystic fluid. No biliary dilation. Pancreas: Normal density. No abnormal calcifications or inflammatory process. No evidence of mass. Spleen: Normal. Kidneys: The right kidney shows normal size, contour and axis. 6 millimeter calculus in the upper left ureter causing moderate hydronephrosis. Mild perinephric stranding and left renal enlargement. There is an additional nonobstructing stone measuring 11 millimeters near the upper pole of the left k idney.. No suspicious masses seen. Adrenal glands: No masses seen. Vasculature: Abdominal aorta non-dilated. Soft tissues: Unremarkable. Bladder: No gross wall thickening. No calculi.No focal mass. Bowel: No obstruction. No bowel wall thickening. Appendix normal. Diverticulosis of the lower descending and sigmoid colon. No evidence of diverticulitis. Normal quantity of stool. Peritoneal cavity: No ascites. No focal collection. No mesenteric inflammatory response. No free air. Bones: Unremarkable for age. Reproductive organs: Unremarkable. Lymph nodes: No pathologically enlarged lymph nodes. IMPRESSION:: 6 millimeter stone at the proximal left ureter causing moderate hydronephrosis. The preliminary [facility] report was reviewed. RADIATION DOSE DELIVERED: 2,006.99mGy.cm Total DLP DATA REPOSITORY: All CT scans at this facility are submitted to the National Radiology Data Registry (NRDR) Dose Index Registry (DIR) with the [employer] ([employer]). RADIATION OPTIMIZATION: All CT scans at this facility use at least one of these dose optimization techniques: automated exposure control; mA and/or kV adjustment per patient size (includes targeted exams where dose is matched to clinical indication); or iterative reconstruction.
[2025-02-18 01:30] VITALS: BP 132/77; PULSE 93; PULSE 94; RESP 12; O2SAT 98
--- NOTE | 2025-02-18 01:39 | DI.[facility]_ITS ---
PROCEDURE INFORMATION: Exam: CT Abdomen And Pelvis With Contrast Exam date and time: 02/18/2025 1:03 AM Age: 45 years old Clinical indication: Abdominal pain; Left flank plank TECHNIQUE: Imaging protocol: Computed tomography of the abdomen and pelvis with contrast. Radiation optimization: All CT scans at this facility use at least one of these dose optimization techniques: automated exposure control; mA and/or kV adjustment per patient size (includes targeted exams where dose is matched to clinical indication); or iterative reconstruction. Contrast material: [id number]; Contrast volume: 100 ml; Contrast route: INTRAVENOUS (IV); COMPARISON: CT CHEST PE CTA 04/07/2022 1:18 PM FINDINGS: Lungs: Lung bases are clear. Liver: The liver has a normal appearance. Gallbladder and biliary ducts: Multiple calcified stones are present in the gallbladder fundus. No gallbladder wall thickening or pericholecystic fluid. Pancreas: The pancreas demonstrates normal size. No pancreatic ductal dilatation. Spleen: The spleen demonstrates normal size. Adrenal glands: The adrenal glands have a normal appearance. Kidneys and ureters: The right kidney is normal in size. The left kidney is mildly enlarged. There is a left renal parenchymal calcification. There is moderate left perinephric fat stranding. There is moderate left hydronephrosis. An obstructing 6 mm calculus is present within the upper left ureter. The downstream left ureter is decompressed. Stomach and bowel: The bowel demonstrates overall normal caliber and wall thickness. There are scattered diverticular outpouchings throughout the colon. No mucosal thickening or pericolonic fat stranding. Appendix: The appendix is thin walled. Intraperitoneal space: Unremarkable. No free air. No significant fluid collection. Vasculature: The IVC and aorta have a normal appearance. Lymph nodes: No enlarged lymph nodes. Urinary bladder: The bladder is thin walled and fluid filled. Reproductive: The uterus has a normal appearance. Bones/joints: Bones have a normal appearance. No acute fracture or suspicious bone lesion. Soft tissues: Unremarkable. IMPRESSION: 1. Obstructive left ureterolithiasis with resultant moderate left hydronephrosis and perinephric fat stranding. 2. No other acute intra-abdominal findings. 3. Normal appendix. 4. Cholelithiasis. No findings to suggest choledocholithiasis or acute cholecystitis. 5. Diverticulosis. No acute diverticulitis. Dictated and Authenticated by: Mary Rubio MD. Orderin Isha Pugh MD
[2025-02-18] MEDS: MORPHine 10 MG/ML VIAL 4 MG IVP (01:40)
[2025-02-18] MEDS: oxyCODONE 5 MG TAB 10 MG PO (01:55)
[2025-02-18] MEDS: Potassium Chloride 20 MEQ TABCR 40 MEQ PO (01:55)
[2025-02-18 04:54] VITALS: BP 133/75; PULSE 95; RESP 18; O2SAT 97
--- NOTE | 2025-02-20 07:46 | NUR.NOTE ---
Access chart to reconcile EKG orders with EKG's in [facility]. Duplicate order cancelled. Nursing Note:
== END 2025-02-18 04:43 | disposition home or self-care (01) ==
PROVIDERS: Emergency Provider Student in an Organized Health Care Education/Training Program; PCP Nurse Practitioner Family
DX: R11.2 Nausea with vomiting, unspecified; R10.A2 Flank pain, left side; R10.12 Left upper quadrant pain; N20.1 Calculus of ureter; E87.6 Hypokalemia
CPT/HCPCS: 99284; 99285; 96374; 96375; 81025; 80053; 93005; 74177; 81003; 81015; 83605; 83735; 85025; 93010; J1885; J2270; J2405; J3480; J3490

== ENCOUNTER 2025-02-19 09:38 | Emergency (ER) | payer MEDICAID, SELFPAY ==
[2025-02-19] VITALS (40 sets, daily range): BP systolic 107–152; BP diastolic 65–91; PULSE 69–92; RESP 16–20; TEMP 36.1–37.1; O2SAT 92–100; BMI 41.5
[2025-02-19] MEDS: Ondansetron 4 MG/2 ML VIAL IVP (10:09)
[2025-02-19] MEDS: Ketorolac 15 MG/ML VIAL IVP (10:10)
[2025-02-19] MEDS: Normal Saline Flush 10 ML SYR IVP (10:10)
[2025-02-19] MEDS: Lactated Ringers 1,000 ML 150 ML IV (10:11)
[2025-02-19 10:12] LABS: Abs Immature Grans 0.04 10^3/uL (0.0-0.06); HCT 43.5 % (36.0-46.0); HGB 13.9 g/dL (11.2-15.7); Immature Grans % 0.4 %; MCH 29.8 pg (27.0-33.0); MCHC 32.0 % (32.0-36.0); MCV 93 fL (80-95); MPV 8.8 fL (8.0-11.0); Platelet Count 254 10^3/uL (130-400); RBC 4.67 10^6/uL (3.93-5.22); RDW 12.4 % (11.7-14.6); RDW-SD 42.2 fL; WBC 11.08 10^3/uL (4.4-10.8)
[2025-02-19 10:25] LABS: Glucose Negative (Negative)
[2025-02-19 10:32] LABS: RBC 0-2 HPF (0-2); WBC 0-2 HPF (0-5)
[2025-02-19 10:33] LABS: C & S Indicated? No
[2025-02-19 10:40] LABS: Magnesium 2.0 mg/dL (1.6-2.6)
[2025-02-19 10:43] LABS: Lipase 31 U/L (<53)
--- NOTE | 2025-02-19 10:49 | W.ED.GENAD ---
Discharge Plan Disposition Patient Disposition: Admit to [facility] Condition: Serious Discharge Details Clinical Impression: Left ureteral stone Primary Care Provider: nEe Cuevas ED Provider: Paco Carlisle Home Meds and New Rx's Prescriptions: No Action hydroxyzine HCl 25 mg tablet 25 mg PO QHS PRN Claritin Liqui-Gel 10 mg capsule 10 mg PO DAILY (DME) Space Chamber Spacer See Rx Instructions .ROUTE .MEDSUPPLY Qty: 1 Rx Instructions: As directed albuterol sulfate [ProAir HFA] 90 mcg/actuation HFA aerosol inhaler 2 puff inhalation Q6H PRN topiramate [Topamax] 50 mg tablet 50 mg PO BID tamsulosin 0.4 mg capsule 0.4 mg PO DAILY Qty: 14 0RF oxycodone 5 mg capsule 5 mg PO Q8H PRNQty: 6 0RF ondansetron 4 mg tablet,disintegrating 4 mg PO Q8H PRNQty: 10 0RF buspirone 10 mg tablet 10 mg PO BID Patient Comments: TAKE 1 TABLET BY MOUTH TWICE DAILY omeprazole 20 mg capsule,delayed release(DR/EC) 20 mg PO DAILY Patient Comments: TAKE 1 CAPSULE BY MOUTH ONCE DAILY escitalopram oxalate 20 mg tablet 20 mg PO DAILY Patient Comments: TAKE 1 TABLET BY MOUTH EVERY DAY HPI General Mode of arrival: ambulatory. Date/Time Provider Initiated Documentation: 02/19/25 09:53. Limitations to Documentation: no limitations. Information obtained by: patient. HPI Narrative: HISTORY OF PRESENT ILLNESS 45-year-old female with migraines, depression, and GERD presenting with a kidney stone. Accompanied by her mother. Patient was seen here 2 days ago for left flank pain. Head CT of the abdomen pelvis that revealed ureteral stone. Was discharged on antiemetic. Patient notes pain has persisted and now with severe nausea. Pain has decreased from 10/10 to 6/10. Zofran prescribed on 02/17/2025 has not provided relief; last dose taken between 0200 and 0300 hours on 02/19/2025. No hematuria, dysuria, or loose stools. Uncertain about fever but felt extremely cold at home. No prior history of kidney stones. On medication for migraines and depression. Recently switched to a different depression medication, which is working better. Also has GERD. Related Data Home Medications ?Medication ?Instructions ?Recorded ?Confirmed buspirone 10 mg tablet 10 mg PO BID 04/21/20 02/19/25 omeprazole 20 mg capsule,delayed 20 mg PO DAILY 04/21/20 02/19/25 release albuterol sulfate 90 mcg/actuation 2 puff inhalation Q6H PRN 04/13/21 02/19/25 aerosol inhaler (ProAir HFA) hydroxyzine HCl 25 mg tablet 25 mg PO QHS PRN 04/13/21 02/19/25 inhalational spacing device (Space #1 ea 04/13/21 02/19/25 Chamber) loratadine 10 mg capsule (Claritin 10 mg PO DAILY 04/13/21 02/19/25 Liqui-Gel) topiramate 50 mg tablet (Topamax) 50 mg PO BID 04/13/21 02/19/25 ondansetron 4 mg disintegrating 4 mg PO Q8H PRN #10 tabs 02/18/25 02/19/25 tablet oxycodone 5 mg capsule 5 mg PO Q8H PRN #6 caps 02/18/25 02/19/25 tamsulosin 0.4 mg capsule 0.4 mg PO DAILY #14 caps 02/18/25 02/19/25 escitalopram oxalate 20 mg tablet 20 mg PO DAILY 02/19/25 02/19/25 Previous Rx's ?Medication ?Instructions ?Recorded ondansetron 4 mg disintegrating 4 mg PO Q8H PRN #10 tabs 02/18/25 tablet oxycodone 5 mg capsule 5 mg PO Q8H PRN #6 caps 02/18/25 tamsulosin 0.4 mg capsule 0.4 mg PO DAILY #14 caps 02/18/25 Allergies Allergy/AdvReac Type Severity Reaction Status Date / Time levofloxacin (From [facility]) Allergy Intermediate Hives Verified 02/19/25 09:48 amoxicillin AdvReac Mild GI Bleeding Verified 02/19/25 09:48 General Stated Complaint: Nausea/Vomit/Diar FALGUNI: 3 Course Vital Signs Vital signs: Vital Signs Temperature 36.7 C 02/19/25 09:42 Pulse 92 H 02/19/25 09:42 Respiratory Rate 20 02/19/25 09:42 Blood Pressure 152/91 H 02/19/25 09:42 Pulse Oximetry 98 02/19/25 09:42 Temperature 36.7 C 02/19/25 09:47 Temperature Source Temporal Artery Scan 02/19/25 09:47 Pulse 92 H 02/19/25 09:47 Respiratory Rate 20 02/19/25 09:47 Blood Pressure 152/91 H 02/19/25 09:47 Blood Pressure Position Sitting 02/19/25 09:47 Pulse Oximetry 98 02/19/25 09:47 Oxygen Delivery Method Room Air 02/19/25 09:47 Oxygen Flow Rate 0 02/19/25 09:47 Pain Level 6 02/19/25 10:10 Lab/Test Results Lab/Test Results: Laboratory Tests Range/Units 02/19/25 02/19/25 09:55 10:04 WBC (4.4-10.8) 10^3/uL 11.08 H RBC (3.93-5.22) 10^6/uL 4.67 Hgb (11.2-15.7) g/dL 13.9 Hct (36.0-46.0) % 43.5 MCV (80-95) fL 93 MCH (27.0-33.0) pg 29.8 MCHC (32.0-36.0) % 32.0 RDW (11.7-14.6) % 12.4 Plt Count (130-400) 10^3/uL 254 MPV (8.0-11.0) fL 8.8 Immature Gran % % 0.4 Neutrophils % % 73.1 Lymphocytes % % 20.2 Monocytes % % 5.6 Eosinophils % % 0.3 Basophils % % 0.4 Nucleated RBC % (0.0-0.3) % 0.0 Absolute Neutrophils (1.2-6.7) 10^3/uL 8.10 H Absolute Lymphocytes (1.2-3.4) 10^3/uL 2.24 Absolute Monocytes (0.1-0.8) 10^3/uL 0.62 Absolute Eosinophils (0.0-0.7) 10^3/uL 0.03 Absolute Basophils (0.0-0.2) 10^3/uL 0.04 Magnesium (1.6-2.6) mg/dL 2.0 Lipase (<53) U/L 31 Urine Color (Yellow) Yellow Urine Clarity (Clear) Clear Urine pH (5-8) 6.5 Ur Specific [place] (1.005-1.025) 1.025 Urine Protein (Neg-Trace) mg/dL 30 H Urine Ketones (Negative) mg/dL Trace H Urine Blood (Negative) Trace-intact H Urine Nitrite (Negative) Negative Urine Bilirubin (Negative) Small H Urine Urobilinogen (Up to 0.2) mg/dL 0.2 Ur Leukocyte Esterase (Negative) Negative Urine RBC (0-2) HPF 0-2 Urine WBC (0-5) HPF 0-2 Ur Epithelial Cells (Negative) HPF Moderate Urine Crystals (Negative) HPF Negative Urine Bacteria (Negative) HPF Moderate Urine Casts (Negative) LPF Negative Urine Mucus (Negative) Moderate Ur Culture Indicated? No Urine Glucose (Negative) mg/dL Negative POC- Test(urine) Negative Medical Decision Making ASSESSMENT AND PLAN Initial Assessment: 45-year-old female with history of recently diagnosed ureteral stone, here with persistent left flank pain and nausea despite Zofran. No fever, hematuria, or dysuria. Dehydrated. Differential Diagnosis: - Nephrolithiasis - Consider septic stone ED Course: - CT scan 02/18/2025 confirmed 6 mm renal calculus. - I consulted urologist Dr. Martinez. - Patient was given ondansetron and Reglan IV, IVF, and toradol IV. - I spoke with Dr. Bob who will plan to admit for ureteral stent. Patient to remain NPO. Clinical Impression: - Nephrolithiasis Disposition: - Admit to Dr. Bob for procedure This document was written with the assistance of JG Renner. The patient consented to its use. PFSH All Active Problems (Updated 02/19/25 @ 13:03 by Paco Carlisle MD) Left ureteral stone (Acute) Acute hypokalemia (Acute) Kidney stone (Chronic) Asthma (Chronic) Onychomycosis of toenail (Acute) Obesity (Chronic) Headache (Acute) Hypomagnesemia (Acute) Facial flushing (Acute) Night sweats (Acute) Caregiver role strain (Acute) Anxiety (Chronic) Unresolved grief (Acute) Acute post-traumatic stress disorder (Acute) Varicose veins of right lower extremity (Acute) Genital herpes (Acute) Dyspepsia (Acute) Dizziness (Acute) Hyperlipidemia (Acute) Restrictive lung disease (Acute) Fracture of greater tuberosity of humerus (Acute 04/21/20) Oligomenorrhea, unspecified (Acute) Miscarriage (Acute) Threatened miscarriage in early (Acute) Medical History HTN (hypertension) Lower back pain Polycystic disease, ovaries Surgical History H/O section Social History Smoking/Tobacco Use Status: Never Smoking risk assessment performed?: Yes Alcohol Intake: current Alcohol Intake frequency: other Alcohol type: hard liquor Drug use: Never Substance use type: does not use Current gender identity: female Do you feel safe at home: Yes Do you feel safe in your relationship?: Yes PAWSS Have you Been Recently Intoxicated or Drunk Within the Last 30 days?: Yes Have you Ever Experienced Previous Episodes of Alcohol Withdrawal?: No Have you ever Experienced Withdrawal Seizures?: No Have you ever Experienced Delirium Tremens(DT)s?: No Have you ever undergone Alcohol Rehabilitation Treatment (i.e, inpt ot outpatient treatment programs)?: No Have you ever Experienced Blackouts?: No Have you ever Combined Alcohol with other Downers within the last 90 days?: No Have you ever Combined Alcohol with any other Substance of Abuse during the last 90 days?: No Positive Blood Alcohol level on Presentation? [PCS.BAL]: No Evidence of Increased Autonomic Activity (i.e. HR>120, tremor, sweating, agitation, nausea)?: No Result: 1
[2025-02-19] MEDS: Metoclopramide 10 MG/2 ML VIAL IVP (10:58)
[2025-02-19] MEDS: Lactated Ringers 1,000 ML 1000 ML IV (10:59)
[2025-02-19 11:16] LABS: ALT 15 U/L (10-49); AST 16 U/L (<34); Albumin 4.7 g/dL (3.4-5.0); Alkaline Phosphatase 91 U/L (46-116); Anion Gap 8.1 mmol/L (3-11); BUN 14 mg/dL (9-23); Bilirubin, Total 0.50 mg/dL (0.2-1.2); CO2 29.9 mmol/L (20.0-31.0); Calcium 9.1 mg/dL (8.3-10.6); Chloride 106 mmol/L (98-107); Glucose 100 mg/dL (74-106); Potassium 3.5 mmol/L (3.5-5.1); Sodium 144 mmol/L (136-145); Total Protein 7.5 g/dL (5.7-8.2)
--- NOTE | 2025-02-19 11:50 | W.ANESPRE ---
General Info Date of Service Date Performed: 02/19/25 Height: 5 ft 10 in Weight: 131.542 kg Body Mass Index (BMI): 41.5 Surgical Procedure: Operation Date: 02/19/25 14:40 Proposed Procedure Side Surgeon p Cystoscopy/Retrograde/Stent Placement Left Juice Bob MD Meds Allergies and Home Medications Allergies Allergy/AdvReac Type Severity Reaction Status Date / Time levofloxacin (From Levaquin) Allergy Intermediate Hives Verified 02/19/25 09:48 amoxicillin AdvReac Mild GI Bleeding Verified 02/19/25 09:48 Home Medication ?Medication ?Instructions ?Recorded buspirone 10 mg tablet 10 mg PO BID 04/21/20 omeprazole 20 mg capsule,delayed 20 mg PO DAILY 04/21/20 release albuterol sulfate 90 mcg/actuation 2 puff inhalation Q6H PRN 04/13/21 aerosol inhaler (ProAir HFA) hydroxyzine HCl 25 mg tablet 25 mg PO QHS PRN 04/13/21 inhalational spacing device (Space #1 ea 04/13/21 Chamber) loratadine 10 mg capsule (Claritin 10 mg PO DAILY 04/13/21 Liqui-Gel) topiramate 50 mg tablet (Topamax) 50 mg PO BID 04/13/21 ondansetron 4 mg disintegrating 4 mg PO Q8H PRN #10 tabs 02/18/25 tablet oxycodone 5 mg capsule 5 mg PO Q8H PRN #6 caps 02/18/25 tamsulosin 0.4 mg capsule 0.4 mg PO DAILY #14 caps 02/18/25 escitalopram oxalate 20 mg tablet 20 mg PO DAILY 02/19/25 Current Visit Medications: Current Medications Generic Name Dose Route Start Last Admin Trade Name Freq PRN Reason Stop Dose Admin Ringer's Solution 1,000 mls @ 150 mls/hr 02/19/25 10:00 02/19/25 10:11 IV 150 mls/hr INFUSION PANFILO Administration IV Miscellaneous Supplies 1 each 02/19/25 10:00 Iv Access-Emergency Dept IV DIRECTED PANFILO Sodium Chloride 0 ml 02/19/25 09:53 Normal Saline Flush 10 Ml Syr IVP PRN PRN Sodium Chloride 0 ml 02/19/25 20:00 02/19/25 10:10 Normal Saline Flush 10 Ml Syr IVP 10 ml BID PANFILO Administration Sodium Chloride 0 ml 02/19/25 09:53 Normal Saline 10 Ml Vial IJ DIRECTED PRN PFSH Active Problems Active Problems: Problem Status Onset Code Acute hypokalemia Acute E87.6 Kidney stone Chronic N20.0 Asthma Chronic J45.909 Onychomycosis of toenail Acute B35.1 Obesity Chronic E66.9 Headache Acute R51.9 Hypomagnesemia Acute E83.42 Facial flushing Acute R23.2 Night sweats Acute R61 Caregiver role strain Acute Z63.8 Anxiety Chronic F41.9 Unresolved grief Acute F43.21 Acute post-traumatic stress disorder Acute F43.11 Varicose veins of right lower extremity Acute I83.91 Genital herpes Acute A60.00 Dyspepsia Acute R10.13 Dizziness Acute R42 Hyperlipidemia Acute E78.5 Restrictive lung disease Acute J98.4 Fracture of greater tuberosity of humerus Acute 04/21/20 S42.253A Oligomenorrhea, unspecified Acute N91.5 Miscarriage Acute O03.9 Threatened miscarriage in early Acute O20.0 Medical History Medical History HTN (hypertension) Lower back pain Polycystic disease, ovaries Surgical History Surgical History H/O section Tobacco Smoking/Tobacco Use Status: Never Alcohol Alcohol Intake: current Alcohol intake frequency: other Alcohol type: hard liquor Substance Use Substance use: Never Substance use type: does not use Vital Signs and Lab Results Vital Signs Most Recent Vital Signs in EMR: Most Recent Vital Signs Temp Pulse Resp BP Pulse Ox 36.7 C 86 20 118/80 92 02/19/25 09:47 02/19/25 11:16 02/19/25 09:47 02/19/25 11:16 02/19/25 11:16 Point of Care Results Point of Care Results: POC- Test(urine) Negative 02/19/25 10:18 Lab Results 02/19/25 10:04 02/19/25 10:04 Complete Blood Count: WBC, (4.4-10.8) 11.08 10^3/uL H Today, 10:04 RBC, (3.93-5.22) 4.67 10^6/uL Today, 10:04 Hgb, (11.2-15.7) 13.9 g/dL Today, 10:04 Hct, (36.0-46.0) 43.5 % Today, 10:04 Plt Count, (130-400) 254 10^3/uL Today, 10:04 VBG Lactate, (<or=2.0) 1.9 mmol/L 02/18/25, 00:01 Complete Metabolic Panel: Sodium, (136-145) 144 mmol/L Today, 10:04 Potassium, (3.5-5.1) 3.5 mmol/L Today, 10:04 Chloride, (98-107) 106 mmol/L Today, 10:04 Carbon Dioxide, (20.0-31.0) 29.9 mmol/L Today, 10:04 BUN, (9-23) 14 mg/dL Today, 10:04 Creatinine, (0.55-1.02) 1.07 mg/dL H Today, 10:04 Est GFR (CKD-EPI 2020), (mL/min/1.73m2) 55.96 Today, 10:04 Magnesium, (1.6-2.6) 2.0 mg/dL Today, 10:04 Calcium, (8.3-10.6) 9.1 mg/dL Today, 10:04 Albumin, (3.4-5.0) 4.7 g/dL Today, 10:04 Glucose, (74-106) 100 mg/dL Today, 10:04 Liver Function Panel: ALT, (10-49) 15 U/L Today, 10:04 AST, (<34) 16 U/L Today, 10:04 Pancreas Panel: Lipase, (<53) 31 U/L Today, 10:04 Imaging and Studies Imaging and Studies Study information below may be from another EMR and interpreted by another provider. Please see original notes in EMR for more complete details. Pulmonary Function Summary: Pulmonary Function Test Result Interpretation Spirometry: No evidence of obstructive airways disease, no bronchodilator response Lung Volumes: Appears to be consistent with mild restrictive pattern, slow vital capacity is not reported. That should be measured. Diffusion Capacity: Normal Airway Pressure: Borderline mildly elevated. May be a normal variant Impression Appears to be consistent with mild restrictive pattern, slow vital capacity is not reported. That should be measured. This constellation of findings can represent early, developing restrictive lung disease, but also can represent chest wall restriction from underlying obesity or respiratory neuromuscular dysfunction. Slow vital capacity should be measured and reported Clinical Correlation therefore is recommended. Anesthesia Assessment and Plan Anesthesia History Personal History: No History of Anesthesia Complications Family History: No Family History of Anesthesia Complications Exercise Tolerance Exercise Tolerance: Metabolic Equivalents>4 Pertinent Negatives Pertinent Negatives: No Symptoms of GERD Cardiac & Pulmonary Exam Cardiac Exam: Normal S1/S2 Heart Sounds Pulmonary Exam: Clear Bilateral Breath Sounds Implantable Cardiac Device Does patient have a Pacemaker or an ICD?: No Airway Exam Known Difficult Airway: No Mallampati Class: 2 Mouth Opening: Normal (> 3cm) Thyromental Distance: Less than 3 cm Neck Range of Motion: Full ROM Neck Circumference: Thick Teeth Condition: Normal Dentition ASA Classification ASA Score: ASA 3 Emergency Case?: No NPO Status NPO Status: NPO Clears >2 hours, Solids >8 hours Status Status: Negative HCG Anesthesia Plan Resuscitation Status: Full Code Anesthesia Technique: General Anesthesia Airway Planned: Natural Airway Monitors Used: Standard Monitors
--- NOTE | 2025-02-19 13:25 | UCONE_ITS ---
Date of service: 02/19/25 Time of Service: 14:06 Assessment and Plan Assessment and plan (1) Left ureteral stone: Status: Acute Assessment and plan: She has failed outpatient management, so we will plan on placing a ureteral stent to relieve her ureteral obstruction urgently. Hopefully, this maneuver will allow her to tolerate oral nutrition and medications and be discharged after the procedure. After her initial visit to the emergency department, we had requested her PCP notes so that we might have better guidance as to whether she might be a candidate for a larger stone procedure here eventually. So far, we have not yet gotten these records but hopefully we will have them by the time I see her as scheduled in the office next week. History of Present Illness History of Present Illness Chief Complaint: Left ureteral stone Narrative: This is a 45-year-old woman with no previous history of kidney stones. She presented to the emergency department about 48 hours ago with left flank pain. Her urine was not infected at that time. She was found to have a left proximal obstructing ureteral stone. She was discharged with oral medications and antiemetics. She returned to the emergency department today with persistent nausea and vomiting. She is not able to keep even fluids down. Her pain is not out of control. She has no fevers or chills. She has no prior history of urologic surgery. He has no metabolic abnormalities such as gout or hyperparathyroidism. She has no bleeding disorders or wound healing issues. Review of Systems Narrative: No fevers or chills Seasonal allergies. No vision change or dysphasia No diabetes or thyroid dysfunction ? restrictive lung disease. No hemoptysis No chest pain or palpitations GERD. No hepatitis, ulcers, jaundice Hx migraine headaches. No seizures, strokes or peripheral neuropathy No bleeding disorders or anemia No gout PFSH All Active Problems (Updated 02/19/25 @ 13:03 by Paco Carlisle MD) Left ureteral stone (Acute) Acute hypokalemia (Acute) Kidney stone (Chronic) Asthma (Chronic) Onychomycosis of toenail (Acute) Obesity (Chronic) Headache (Acute) Hypomagnesemia (Acute) Facial flushing (Acute) Night sweats (Acute) Caregiver role strain (Acute) Anxiety (Chronic) Unresolved grief (Acute) Acute post-traumatic stress disorder (Acute) Varicose veins of right lower extremity (Acute) Genital herpes (Acute) Dyspepsia (Acute) Dizziness (Acute) Hyperlipidemia (Acute) Restrictive lung disease (Acute) Fracture of greater tuberosity of humerus (Acute 04/21/20) Oligomenorrhea, unspecified (Acute) Miscarriage (Acute) Threatened miscarriage in early (Acute) Medical History HTN (hypertension) Lower back pain Polycystic disease, ovaries Surgical History H/O section Social History Smoking/Tobacco Use Status: Never Smoking risk assessment performed?: Yes Alcohol Intake: current Alcohol Intake frequency: other Alcohol type: hard liquor Drug use: Never Substance use type: does not use Current gender identity: female Do you feel safe at home: Yes Do you feel safe in your relationship?: Yes Exam Narrative Exam Narrative: She is an obese woman does not appear overly uncomfortable at this time. She does not appear septic or toxic Her vital signs are documented elsewhere Her chest wall motion is normal. She is not short of breath at rest. Her breath sounds are diminished at the bases but there are no rales or rhonchi Cardiac exam shows a regular rate and rhythm Her abdomen is obese but soft with no peritoneal signs She is awake and alert I reviewed her CT scan on the PACS system. The scan was done 2 days ago. At that time, she had a 6 mm left proximal ureteral stone causing hydronephrosis. An additional calcification in the left kidney was seen but was not obstructing Results Last Vital Signs Temp 36.7 C 02/19/25 09:47 Pulse 74 02/19/25 13:10 Resp 20 02/19/25 09:47 BP 136/77 02/19/25 13:01 Pulse Ox 93 02/19/25 13:10 Labs 02/19/25 10:04 02/19/25 10:04 Labs: Laboratory Results - last 24 hr 02/19/25 02/19/25 09:55 10:04 WBC 11.08 H RBC 4.67 Hgb 13.9 Hct 43.5 MCV 93 MCH 29.8 MCHC 32.0 RDW 12.4 Plt Count 254 MPV 8.8 Immature Gran % 0.4 Neutrophils % 73.1 Lymphocytes % 20.2 Monocytes % 5.6 Eosinophils % 0.3 Basophils % 0.4 Nucleated RBC % 0.0 Absolute Neutrophils 8.10 H Absolute Lymphocytes 2.24 Absolute Monocytes 0.62 Absolute Eosinophils 0.03 Absolute Basophils 0.04 Sodium 144 Potassium 3.5 Chloride 106 Carbon Dioxide 29.9 Anion Gap 8.1 BUN 14 Creatinine 1.07 H Est GFR (CKD-EPI 2020) 55.96 Glucose 100 Calcium 9.1 Magnesium 2.0 Total Bilirubin 0.50 AST 16 ALT 15 Alkaline Phosphatase 91 Total Protein 7.5 Albumin 4.7 Lipase 31 Urine Color Yellow Urine Clarity Clear Urine pH 6.5 Ur Specific [place] 1.025 Urine Protein 30 H Urine Ketones Trace H Urine Blood Trace-intact H Urine Nitrite Negative Urine Bilirubin Small H Urine Urobilinogen 0.2 Ur Leukocyte Esterase Negative Urine RBC 0-2 Urine WBC 0-2 Ur Epithelial Cells Moderate Urine Crystals Negative Urine Bacteria Moderate Urine Casts Negative Urine Mucus Moderate Ur Culture Indicated? No Urine Glucose Negative
--- NOTE | 2025-02-19 15:00 | DI.RAD_ITS ---
Exam(s) XR RETROGRADE IN OR EXAM: XR RETROGRADE IN OR CLINICAL HISTORY: Left ureteral stone. TECHNIQUE: 2D digital imaging was performed. COMPARISON: CT CT ABDOMEN PELVIS W from 02/18/2025 FINDINGS: Fluoroscopy was provided during retrograde urologic procedure for calculus at left UPJ. See procedure report for details. IMPRESSION: Radiation exposure index/cumulative dose:Ernar= 6.0504mGy DATA REPOSITORY: RADIATION DOSE DELIVERED:
[2025-02-19] MEDS: GENTAMICIN 160 MG in Normal Saline 100 ML 200 MG IVPB (15:35)
[2025-02-19] MEDS: Omnipaque 300 MG/ML 50 ML BTL (15:58)
--- NOTE | 2025-02-19 16:03 | W.PM.DSUDISC ---
Date of service: 02/19/25 Discharge Plan Disposition Patient Disposition: Home Condition: Stable Discharge Details Clinical Impression: Left ureteral stone, Kidney stone Primary Care Provider: Ene Cuevas ED Provider: Paco Carlisle Home Meds and New Rx's Prescriptions: No Action hydroxyzine HCl 25 mg tablet 25 mg PO QHS PRN Claritin Liqui-Gel 10 mg capsule 10 mg PO DAILY (DME) Space Chamber Spacer See Rx Instructions .ROUTE .MEDSUPPLY Qty: 1 Rx Instructions: As directed albuterol sulfate [ProAir HFA] 90 mcg/actuation HFA aerosol inhaler 2 puff inhalation Q6H PRN topiramate [Topamax] 50 mg tablet 50 mg PO BID tamsulosin 0.4 mg capsule 0.4 mg PO DAILY Qty: 14 0RF oxycodone 5 mg capsule 5 mg PO Q8H PRNQty: 6 0RF ondansetron 4 mg tablet,disintegrating 4 mg PO Q8H PRNQty: 10 0RF buspirone 10 mg tablet 10 mg PO BID Patient Comments: TAKE 1 TABLET BY MOUTH TWICE DAILY omeprazole 20 mg capsule,delayed release(DR/EC) 20 mg PO DAILY Patient Comments: TAKE 1 CAPSULE BY MOUTH ONCE DAILY escitalopram oxalate 20 mg tablet 20 mg PO DAILY Patient Comments: TAKE 1 TABLET BY MOUTH EVERY DAY Discharge Instructions Additional Instructions: continue with your prescribed medications keep your followup appt for Saturday as scheduled. We will discuss treatment to treat your stone at that time I placed a ureteral stent today. Your nausea and flank pain should improve, but you may notice blood in the urine, urinary frequency and discomfort when you urinate as long as the stent is in place Stand Alone Forms: Portal Information Discharge Data Discharge Physician: Juice Bob DS: Diagnosis Discharge Diagnosis (1) Left ureteral stone: Status: Acute
--- NOTE | 2025-02-19 16:11 | ROE_ITS ---
Operative Note Operative Note PRE-OP DIAGNOSIS: left ureteral stone POST-OP DIAGNOSIS: same PROCEDURE: Cystoscopy, left retrograde pyelogram, insert left ureteral stent SURGEON: Juice Bob ANESTHESIA TYPE: Local By Surgeon and General:No Airway Refer to Anesthesia Record ESTIMATED BLOOD LOSS: 5 PATHOLOGY: none sent COMPLICATIONS: None Patient was transported to: same day Patient's condition: stable Implants: 6 Uruguayan by 22 to 30 cm left ureteral stent Indications: This is a 45-year-old woman who presented to the emergency department earlier this week with left flank pain. She was found to have an obstructing left proximal ureteral stone. She was discharged with conservative management. She presented back to the emergency department with persistent nausea. She was unable to tolerate fluids or oral medications. She presents now for stent placement Findings: Left hydronephrosis Procedure Description: The patient was given a single dose of IV gentamicin. She was brought to the operating room on 02/19/2025. After successful induction of general anesthesia, she was placed in the dorsal lithotomy position. Her genitalia was prepped with Betadine. The genitalia was draped. 2% Xylocaine jelly was instilled into the urethra as a local anesthetic. A 22 F rench rigid cystoscope was passed through the urethra into the bladder. Bladder was inspected with the 30 degree lens. Both ureteral orifices appeared normal with no blood coming from either side. The left orifice was cannulated with a 5 Uruguayan access catheter. A retrograde pyelogram was obtained by injecting Omnipaque through the access catheter under fluoroscopic guidance. I was then able to pass a guidewire through the lumen of the access catheter and advanced the wire up to the pelvis. I removed the access catheter and passed a 6 Uruguayan variable length stent over the wire. The stent was positioned with the proximal end curled in the renal pelvis and distal curl of the bladder. The position of the stent was confirmed both fluoroscopically and cystoscopically. Her bladder was then emptied and the cystoscope was withdrawn. The patient tolerated this procedure well. She was taken back to the day surgery unit in stable condition. She will need a more definitive ureteroscopy because holmium laser lithotripsy of her stone at some point Date of Procedure: 02/19/25
[2025-02-19] MEDS: Lidocaine 2% Jelly 11 ML SYR (16:12)
[2025-02-19] MEDS: Phenazopyridine 200 MG TAB PO (16:25)
--- NOTE | 2025-02-19 16:28 | W.ANESPOSTOP ---
Postoperative Evaluation Date, Time and Location Date Performed: 02/19/25 Time Performed: 16:28 Patient Location: Day Surgery Unit Vital Signs Most Recent Imported Vital Signs: Most Recent Vital Signs Temp Pulse Resp BP Pulse Ox 36.1 C L 76 16 119/68 94 02/19/25 16:08 02/19/25 16:08 02/19/25 16:08 02/19/25 16:08 02/19/25 16:08 Pain Score Most Recent Pain Score: Most Recent Pain Score Pain Level 2 02/19/25 16:08 Assessment Mental Status: Awake (Alert & Oriented to Patient Baseline) Airway and Respiratory Function: Patent airway with normal (patient baseline) respiratory exam Cardiovascular Function: Hemodynamically Stable Hydration Status: Adequately Hydrated Nausea & Vomiting: No Nausea or Vomiting Pain: Pain is tolerable per patient Peripheral Nerve Block: Patient did not receive a nerve block
== END 2025-02-19 17:00 | disposition home or self-care (01) ==
PROVIDERS: Urology; Emergency Provider Student in an Organized Health Care Education/Training Program; PCP Nurse Practitioner Family
PROC: (CPT 74450; principal; 2025-02-19 14:30)
DX: N20.1 Calculus of ureter (principal); G43.909 Migraine, unspecified, not intractable, without status migrainosus; F32.A Depression, unspecified; K21.9 Gastro-esophageal reflux disease without esophagitis
CPT/HCPCS: 52332; 36415; 80053; 81025; 83690; 96361; 96365; 96375; 99285; 74420; 81003; 81015; 83735; 85025; J1100; J1580; J1885; J2250; J2405; J2704; J2765; Q9967

== ENCOUNTER 2025-03-11 11:23 | Day surgery (SDC) | payer MEDICAID, SELFPAY ==
[2025-03-11] VITALS (23 sets, daily range): BP systolic 103–130; BP diastolic 48–100; PULSE 70–103; RESP 6–19; TEMP 36.1–36.7; O2SAT 91–99; BMI 45.1
--- NOTE | 2025-03-11 10:58 | W.PM.HP.N ---
Date of service: 03/11/25 Time of Service: 10:58 Assessment and Plan Assessment and plan (1) Left ureteral stone: Status: Acute Assessment and plan: We will move ahead with ureteroscopy and holmium laser lithotripsy of her stone History of Present Illness History of Present Illness Chief Complaint: Left ureteral stone Narrative: This is a 45 year old woman who was identified as having a left proximal ureteral stone and hydronephrosis. She failed outpatient management, not so much because of pain but because of the nausea and vomiting. We placed a ureteral stent and her symptoms improved. She presents now for ureteroscopy and holmium laser lithotripsy of her stone. Her nausea has improved and is now manageable. She has no flank pain. She has intermittent hematuria. Review of Systems Narrative: No fevers or chills No vision change or dysphasia No diabetes or thyroid Restrictive lung disease which has been stable. No hemoptysis No chest pain or palpitations No nausea, vomiting, hepatitis, ulcers, jaundice No seizures, strokes or peripheral neuropathy No bleeding disorders or anemia No gout PFSH All Active Problems Left ureteral stone (Acute) Acute hypokalemia (Acute) Kidney stone (Chronic) Asthma (Chronic) Onychomycosis of toenail (Acute) Obesity (Chronic) Headache (Acute) Hypomagnesemia (Acute) Facial flushing (Acute) Night sweats (Acute) Caregiver role strain (Acute) Anxiety (Chronic) Unresolved grief (Acute) Acute post-traumatic stress disorder (Acute) Varicose veins of right lower extremity (Acute) Genital herpes (Acute) Dyspepsia (Acute) Dizziness (Acute) Hyperlipidemia (Acute) Restrictive lung disease (Acute) Fracture of greater tuberosity of humerus (Acute 04/21/20) Oligomenorrhea, unspecified (Acute) Miscarriage (Acute) Threatened miscarriage in early (Acute) Medical History HTN (hypertension) Lower back pain Polycystic disease, ovaries Surgical History H/O section Social History Smoking/Tobacco Use Status: Never Smoking risk assessment performed?: Yes Alcohol Intake: current Alcohol Intake frequency: holidays/special occasions only Alcohol type: hard liquor Drug use: Never Substance use type: does not use Housing: house Current gender identity: female Meds Allergies and Home Medications Allergies Allergy/AdvReac Type Severity Reaction Status Date / [facility] Allergy Severe Anaphylaxsi Unverified 03/11/25 11:51 s amoxicillin AdvReac Mild GI Bleeding Verified 03/11/25 11:51 Home Medications ?Medication ?Instructions ?Recorded ?Confirmed ?Type buspirone 10 mg tablet 10 mg PO BID 04/21/20 03/11/25 History omeprazole 20 mg capsule,delayed 20 mg PO DAILY 04/21/20 03/11/25 History release albuterol sulfate 90 mcg/actuation 2 puff inhalation Q6H PRN 04/13/21 03/11/25 History aerosol inhaler (ProAir HFA) hydroxyzine HCl 25 mg tablet 25 mg PO QHS PRN 04/13/21 03/11/25 History inhalational spacing device (Space #1 ea 04/13/21 02/23/25 History Chamber) loratadine 10 mg capsule (Claritin 10 mg PO DAILY 04/13/21 03/11/25 History Liqui-Gel) topiramate 50 mg tablet (Topamax) 50 mg PO BID 04/13/21 03/11/25 History oxycodone 5 mg capsule 5 mg PO Q8H PRN #6 caps 02/18/25 03/11/25 Rx tamsulosin 0.4 mg capsule 0.4 mg PO DAILY #14 caps 02/18/25 03/11/25 Rx escitalopram oxalate 20 mg tablet 20 mg PO DAILY 02/19/25 03/11/25 History ondansetron 4 mg disintegrating 4 mg PO Q8H PRN nausea and 03/03/25 03/11/25 Rx tablet vomiting #10 tabs Exam Const General: cooperative Neck Neck: supple Resp Effort & Inspection: normal respiratory effort Auscultation: clear to auscultation bilaterally Cardio Rate: regular rate Rhythm: regular rhythm GI Palpation: soft and no masses Neuro General: patient alert, patient awake and patient oriented x3 VTE Prohylaxis Risk Level: Low Risk Contraindications: None Prophylaxis: Mechanical Time Spent Time spent with Patient: <40 minutes Time was spent: other
--- NOTE | 2025-03-11 11:00 | DI.RAD_ITS ---
Exam(s) XR RETROGRADE IN OR EXAM: XR RETROGRADE IN OR CLINICAL HISTORY: left ureteral stone. TECHNIQUE: Fluoroscopy was provided for the referring physician for guidance with performing retrograde procedure. COMPARISON: CT CT ABDOMEN PELVIS W from 02/18/2025 XA XR RETROGRADE IN OR from 02/19/2025 FINDINGS: Please see procedure note for details. Fluoro time: 28.2 seconds RADIATION DOSE DELIVERED: Ka,r=19.9 mGy
[2025-03-11] MEDS: Lactated Ringers 1,000 ML 80 ML IV (12:13)
[2025-03-11] MEDS: GENTAMICIN 160 MG in Normal Saline 100 ML 208 MG IVPB (12:24)
--- NOTE | 2025-03-11 12:31 | W.ANESPRE ---
General Info Date of Service Date Performed: 03/11/25 Height: 5 ft 10 in Weight: 142.7 kg Body Mass Index (BMI): 45.1 Surgical Procedure: Operation Date: 03/11/25 13:10 Proposed Procedure Side Surgeon p Cystoscopy/Possible Laser/Retrograde/Ureteroscopy/Stent Removal Juice Bob MD Actual Procedure Side Surgeon p Cystoscopy/Possible Laser/Retrograde/Ureteroscopy/Stent Removal Left Juice Bob MD Pre-Op Diagnosis Post-Op Diagnosis left ureteral stone left ureteral stone Meds Allergies and Home Medications Allergies Allergy/AdvReac Type Severity Reaction Status Date / Time levofloxacin (From Levaquin) Allergy Severe Anaphylaxsi Unverified 03/11/25 11:51 s amoxicillin AdvReac Mild GI Bleeding Verified 03/11/25 11:51 Home Medication ?Medication ?Instructions ?Recorded buspirone 10 mg tablet 10 mg PO BID 04/21/20 omeprazole 20 mg capsule,delayed 20 mg PO DAILY 04/21/20 release albuterol sulfate 90 mcg/actuation 2 puff inhalation Q6H PRN 04/13/21 aerosol inhaler (ProAir HFA) hydroxyzine HCl 25 mg tablet 25 mg PO QHS PRN 04/13/21 inhalational spacing device (Space #1 ea 04/13/21 Chamber) loratadine 10 mg capsule (Claritin 10 mg PO DAILY 04/13/21 Liqui-Gel) topiramate 50 mg tablet (Topamax) 50 mg PO BID 04/13/21 oxycodone 5 mg capsule 5 mg PO Q8H PRN #6 caps 02/18/25 tamsulosin 0.4 mg capsule 0.4 mg PO DAILY #14 caps 02/18/25 escitalopram oxalate 20 mg tablet 20 mg PO DAILY 02/19/25 ondansetron 4 mg disintegrating 4 mg PO Q8H PRN nausea and 03/03/25 tablet vomiting #10 tabs Current Visit Medications: Current Medications Generic Name Dose Route Start Last Admin Trade Name Freq PRN Reason Stop Dose Admin Gentamicin Sulfate 160 mg/ 104 mls @ 208 mls/hr 03/11/25 06:00 03/11/25 12:24 Sodium Chloride IVPB 03/11/25 16:00 208 mls/hr PREOP PANFILO Administration Ringer's Solution 1,000 mls @ 80 mls/hr 03/11/25 06:00 03/11/25 12:13 IV 03/11/25 23:59 80 mls/hr INFUSION PANFILO Administration Sodium Chloride 0 ml 03/11/25 06:00 Normal Saline Flush 10 Ml Syr IV 03/11/25 23:59 PRN PRN Sodium Chloride 0 ml 03/11/25 06:00 Normal Saline 10 Ml Vial IJ 03/11/25 23:59 DIRECTED PRN Sterile Water 0 ml 03/11/25 06:00 Water,Injection,Sterile 10 Ml Vial IJ 03/11/25 23:59 DIRECTED PRN PFSH Active Problems Active Problems: Problem Status Onset Code Left ureteral stone Acute N20.1 Acute hypokalemia Acute E87.6 Kidney stone Chronic N20.0 Asthma Chronic J45.909 Onychomycosis of toenail Acute B35.1 Obesity Chronic E66.9 Headache Acute R51.9 Hypomagnesemia Acute E83.42 Facial flushing Acute R23.2 Night sweats Acute R61 Caregiver role strain Acute Z63.8 Anxiety Chronic F41.9 Unresolved grief Acute F43.21 Acute post-traumatic stress disorder Acute F43.11 Varicose veins of right lower extremity Acute I83.91 Genital herpes Acute A60.00 Dyspepsia Acute R10.13 Dizziness Acute R42 Hyperlipidemia Acute E78.5 Restrictive lung disease Acute J98.4 Fracture of greater tuberosity of humerus Acute 04/21/20 S42.253A Oligomenorrhea, unspecified Acute N91.5 Miscarriage Acute O03.9 Threatened miscarriage in early Acute O20.0 Medical History Medical History HTN (hypertension) Lower back pain Polycystic disease, ovaries Surgical History Surgical History H/O section Tobacco Smoking/Tobacco Use Status: Never Alcohol Alcohol Intake: current Alcohol intake frequency: holidays/special occasions only Alcohol type: hard liquor Substance Use Substance use: Never Substance use type: does not use Vital Signs and Lab Results Vital Signs Most Recent Vital Signs in EMR: Most Recent Vital Signs Temp Pulse Resp BP Pulse Ox 36.7 C 70 16 130/86 97 03/11/25 11:45 03/11/25 11:45 03/11/25 11:45 03/11/25 11:45 03/11/25 11:45 Point of Care Results Point of Care Results: POC- Test(urine) Negative 03/11/25 12:00 Lab Results Complete Blood Count: WBC, (4.4-10.8) 11.08 10^3/uL H 02/19/25, 10:04 RBC, (3.93-5.22) 4.67 10^6/uL 02/19/25, 10:04 Hgb, (11.2-15.7) 13.9 g/dL 02/19/25, 10:04 Hct, (36.0-46.0) 43.5 % 02/19/25, 10:04 Plt Count, (130-400) 254 10^3/uL 02/19/25, 10:04 VBG Lactate, (<or=2.0) 1.9 mmol/L 02/18/25, 00:01 Complete Metabolic Panel: Sodium, (136-145) 144 mmol/L 02/19/25, 10:04 Potassium, (3.5-5.1) 3.5 mmol/L 02/19/25, 10:04 Chloride, (98-107) 106 mmol/L 02/19/25, 10:04 Carbon Dioxide, (20.0-31.0) 29.9 mmol/L 02/19/25, 10:04 BUN, (9-23) 14 mg/dL 02/19/25, 10:04 Creatinine, (0.55-1.02) 1.07 mg/dL H 02/19/25, 10:04 Est GFR (CKD-EPI 2020), (mL/min/1.73m2) 55.96 02/19/25, 10:04 Magnesium, (1.6-2.6) 2.0 mg/dL 02/19/25, 10:04 Calcium, (8.3-10.6) 9.1 mg/dL 02/19/25, 10:04 Albumin, (3.4-5.0) 4.7 g/dL 02/19/25, 10:04 Glucose, (74-106) 100 mg/dL 02/19/25, 10:04 Liver Function Panel: ALT, (10-49) 15 U/L 02/19/25, 10:04 AST, (<34) 16 U/L 02/19/25, 10:04 Pancreas Panel: Lipase, (<53) 31 U/L 02/19/25, 10:04 Imaging and Studies Imaging and Studies Study information below may be from another EMR and interpreted by another provider. Please see original notes in EMR for more complete details. EKG Summary: 02/18/25: Exam: Resting ECG Reason for Exam: Potasium Patient Location: E HR:81 bpm ECG Measurements Heart Rate 81 AXIS VT 182 P 26 QRSd 104 QRS -39 QT 378 T9 QTc 439 Conclusion Sinus rhythm...normal P axis, V-rate 60- 99 Left axis deviation...QRS axis (-30,-90) no ST segment or T wave abnormalities to suggest occlusive CA I have reviewed and I agree with the emergency room physician's ECG interpretation. Pulmonary Function Summary: Pulmonary Function Test Result Interpretation Spirometry: No evidence of obstructive airways disease, no bronchodilator response Lung Volumes: Appears to be consistent with mild restrictive pattern, slow vital capacity is not reported. That should be measured. Diffusion Capacity: Normal Airway Pressure: Borderline mildly elevated. May be a normal variant Impression Appears to be consistent with mild restrictive pattern, slow vital capacity is not reported. That should be measured. This constellation of findings can represent early, developing restrictive lung disease, but also can represent chest wall restriction from underlying obesity or respiratory neuromuscular dysfunction. Slow vital capacity should be measured and reported Clinical Correlation therefore is recommended. Anesthesia Assessment and Plan Anesthesia History Personal History: No History of Anesthesia Complications Family History: No Family History of Anesthesia Complications Exercise Tolerance Exercise Tolerance: Metabolic Equivalents>4 Pertinent Negatives Pertinent Negatives: No Symptoms of GERD Cardiac & Pulmonary Exam Cardiac Exam: Normal S1/S2 Heart Sounds Pulmonary Exam: Clear Bilateral Breath Sounds Implantable Cardiac Device Does patient have a Pacemaker or an ICD?: No Airway Exam Known Difficult Airway: No Mallampati Class: 2 Mouth Opening: Normal (> 3cm) Thyromental Distance: Less than 3 cm Neck Range of Motion: Full ROM Neck Circumference: Thick Teeth Condition: Normal Dentition ASA Classification ASA Score: ASA 3 Emergency Case?: No NPO Status NPO Status: NPO Clears >2 hours, Solids >8 hours Status Status: Negative HCG Anesthesia Plan Resuscitation Status: Full Code Anesthesia Technique: General Anesthesia Airway Planned: Endotracheal Tube Monitors Used: Standard Monitors and SedLine
[2025-03-11] MEDS: Lidocaine 2% Jelly 6 ML SYR (13:27)
[2025-03-11] MEDS: Omnipaque 300 MG/ML 50 ML BTL (14:03)
--- NOTE | 2025-03-11 14:10 | W.PM.DSUDISC ---
Date of service: 03/11/25 Discharge Plan Disposition Patient Disposition: Home Condition: Stable Discharge Details Reason For Visit: Left kidney stone Attending Provider: Juice Bob Primary Care Provider: Ene Cuevas Recommendations for Follow Up Recommended tests to be ordered by follow up provider: renal ultrasound in 8 to 12 weeks Home Meds and New Rx's Prescriptions: Discontinued tamsulosin 0.4 mg capsule 0.4 mg PO DAILY Qty: 14 0RF No Action hydroxyzine HCl 25 mg tablet 25 mg PO QHS PRN Claritin Liqui-Gel 10 mg capsule 10 mg PO DAILY (DME) Space Chamber Spacer See Rx Instructions .ROUTE .MEDSUPPLY Qty: 1 Rx Instructions: As directed albuterol sulfate [ProAir HFA] 90 mcg/actuation HFA aerosol inhaler 2 puff inhalation Q6H PRN topiramate [Topamax] 50 mg tablet 50 mg PO BID ondansetron 4 mg tablet,disintegrating 4 mg PO Q8H PRN (Reason: nausea and vomiting) Qty: 10 0RF oxycodone 5 mg capsule 5 mg PO Q8H PRNQty: 6 0RF buspirone 10 mg tablet 10 mg PO BID Patient Comments: TAKE 1 TABLET BY MOUTH TWICE DAILY omeprazole 20 mg capsule,delayed release(DR/EC) 20 mg PO DAILY Patient Comments: TAKE 1 CAPSULE BY MOUTH ONCE DAILY escitalopram oxalate 20 mg tablet 20 mg PO DAILY Patient Comments: TAKE 1 TABLET BY MOUTH EVERY DAY Discharge Instructions Additional Instructions: There is no need to strain your urine I replaced your ureteral stent, but there is now a string attached to the end of the stent. The end of the string is tucked into your vagina. If the string gets tugged and the stent starts coming out, you might notice urinary incontinence. If that is the case, pulled the string until the stent comes out completely. If the stent does not become dislodged, we will ask you to come into the office early next week to have the stent removed. You will need a follow-up appointment in 8 to 12 weeks. We will ask for a renal ultrasound before the appointment and we will go over your stone's composition at the time of that appointment. Stand Alone Forms: Anesthesia Discharge Inst., Aaron Leo (DSU), Portal Information Activity:: Activity as Tolerated Shower/Bathe:: 24 hours Diet:: As Tolerated Discharge Orders Discharge Orders: Discharge Order (Routine); Ordered 03/11/25 Ordered By: Juice Bob DS: Diagnosis Discharge Diagnosis (1) Left ureteral stone: Status: Acute
--- NOTE | 2025-03-11 14:17 | ROE_ITS ---
Operative Note Operative Note PRE-OP DIAGNOSIS: Left kidney stone POST-OP DIAGNOSIS: same PROCEDURE: Cystoscopy, removal left ureteral stent, left retrograde pyelogram, left flexible ureteroscopy with holmium laser lithotripsy of stone, extraction of stone fragments, insert ureteral stent SURGEON: Juice Bob ANESTHESIA TYPE: Local By Surgeon and General LMA/ETT Refer to Anesthesia Record ESTIMATED BLOOD LOSS: 5 PATHOLOGY: other (stones for chemical analysis) COMPLICATIONS: None Patient was transported to: PACU Patient's condition: stable Implants: 4.8 Cam[place]onian by 22 to 30 cm left ureteral stent Indications: This is a 45-year-old woman who initially presented with a left ureteral stone. Her predominant symptom was nausea rather than pain. She failed outpatient ma nagement and required placement of a ureteral stent. She presents now for stent removal and ureteroscopy with holmium laser lithotripsy. Findings: left ureteral stone bumped back into lower pole calyx Procedure Description: The patient was given IV antibiotics and brought to the operating 03/11/2025. After successful induction of general anesthesia with intubation, she was placed in the dorsal lithotomy position. Her genitalia was prepped and draped. 2% Xylocaine jelly was instilled into the urethra. A 22 [place]onian rigid cystoscope was passed through the urethra into the bladder. The bladder was inspected using a 30 degree lens. The left ureteral orifice was visualized and the stent could be seen protruding from the orifice. The stent was grasped with alligator forceps and brought to the level of the urethral meatus. A guidewire was passed through the lumen of the stent and the stent was removed leaving the wire in place. I then passed the dual-lumen catheter over the wire and injected Omnipaque through the second port of the dual-lumen catheter under fluoroscopic guidance. A filling defect was outlined in one of the lower pole calyces. I then passed a second wire through the dual-lumen catheter and removed the catheter. We chose one of the wires as a working wire and the other is a safety wire. I passed a ureteral access sheath over the working wire leaving the safety wire in place A flexible ureteroscope was then introduced and the scope was advanced up to the upper ureter. No stones were seen in the ureter itself, so we then inspected each of the calyces. A stone was visualized in a lower pole calyx. The stone was treated with a 272 ?m holmium laser fiber. The stone fragmented quite easily. We then grasped the stone fragments with a ZeroTip stone basket and removed thhe stones in their entirely. With no remaining large stone burden visible, we retracted the ureteral access sheath and ureteroscope down the ureter. No ureteral injuries were identified. We then passed a 4.8 Cam[place]onian variable length stent over the safety wire. We positioned the stent with the proximal curled in the renal pelvis and distal curl within the bladder. Positioning of the stent was confirmed both fluoroscopically and cystoscopically. We left the safety string in place and brought the string through the urethral meatus. We tucked the end of the string in the patient's vaginal cavity. The patient tolerated this procedure well with no complications. She was taken to the recovery room in stable condition. Date of Procedure: 03/11/25
[2025-03-11] MEDS: Ketorolac 30 MG/ML VIAL 15 MG IVP (14:42)
[2025-03-11] MEDS: fentaNYL 100 MCG/2 ML VIAL IVP (14:49)
[2025-03-11] MEDS: Phenazopyridine 200 MG TAB PO (15:30)
--- NOTE | 2025-03-11 15:47 | W.ANESPOSTOP ---
Postoperative Evaluation Date, Time and Location Date Performed: 03/11/25 Time Performed: 15:47 Patient Location: Day Surgery Unit Vital Signs Most Recent Imported Vital Signs: Most Recent Vital Signs Temp Pulse Resp BP Pulse Ox 36.1 C L 83 16 109/64 94 03/11/25 15:19 03/11/25 15:19 03/11/25 15:19 03/11/25 15:19 03/11/25 15:19 Pain Score Most Recent Pain Score: Most Recent Pain Score Pain Level 2 03/11/25 15:19 Assessment Mental Status: Awake (Alert & Oriented to Patient Baseline) Airway and Respiratory Function: Patent airway with normal (patient baseline) respiratory exam Cardiovascular Function: Hemodynamically Stable Hydration Status: Adequately Hydrated Nausea & Vomiting: No Nausea or Vomiting Pain: Pain is tolerable per patient Peripheral Nerve Block: Patient did not receive a nerve block Teaching Patient Teaching: Advised to seek followup for the following concerns (See explanation) Concerns: Pulmonary Optimization (Potentially seek PFTs, discussed reactive airway during anesthetic)
== END 2025-03-11 16:20 | disposition home or self-care (01) ==
PROVIDERS: PCP Nurse Practitioner Family; Visit Provider Urology
PROC: (CPT 52356; principal; 2025-03-11 13:00)
DX: N20.0 Calculus of kidney (principal); Z87.442 Personal history of urinary calculi; I10 Essential (primary) hypertension; E78.5 Hyperlipidemia, unspecified; J45.909 Unspecified asthma, uncomplicated; E66.9 Obesity, unspecified; Z68.42 Body mass index [BMI] 45.0-49.9, adult
CPT/HCPCS: 52356; 81025; 74420; 82365; J0131; J1100; J1580; J1885; J2003; J2250; J2405; J2704; J3010; J3475; Q9967